=== PATIENT | female | born 1945 | race Caucasian/White ===

== ENCOUNTER 2024-05-31 13:21 | Outpatient (AMB) | payer MEDICARE, SELFPAY ==
[2024-05-31 13:38] VITALS: BP 127/79; PULSE 96; RESP 17; TEMP 37.3; O2SAT 90; BMI 25.4
--- NOTE | 2024-05-31 13:38 | PD.RESCLINIC ---
Vital Signs 05/31/24 13:38 Height 1.52 m Height Method Stated Weight 58.684 kg Weight Measurement Method Standing Scale BMI 25.4 BP 127/79 Blood Pressure Source Automatic Cuff Blood Pressure Location Left Upper Arm Position Sitting Respiration 17 Pulse 96 Pulse Source Monitor Temp 99.1 F Temp Source Oral Pulse Oximetry (%) 90 L Oxygen Delivery Method Nasal Cannula Allergies/Meds Allergies & Medications Allergies cefaclor Allergy (Verified 06/14/24 14:49) Redness of Skin prednisone Adverse Reaction (Intermediate, Verified 06/14/24 14:49) AGITATED Medication Reconciliation fluticasone fur. 100 mcg-umeclid 62.5 mcg-vilant 25 mcg inhalat.powder (Trelegy Ellipta) 1 inh inhalation QDAY 05/24/23 [History Confirmed 06/14/24] sennosides 8.6 mg tablet (Senna Laxative) 8.6 mg PO QDAY #2 tabs 05/28/23 [Rx Confirmed 06/14/24] clotrimazole 10 mg herbert 10 mg mucous membrane 5XD thrush #70 tabs 06/05/23 [Rx Confirmed 06/14/24] lorazepam 0.5 mg tablet 0.5 mg PO BID PRN anxiety #60 tabs 12/18/23 [Rx Confirmed 06/14/24] escitalopram oxalate 10 mg tablet 10 mg PO QDAY anxiety #90 tabs 12/25/23 [Rx Confirmed 06/14/24] azithromycin 250 mg tablet 250 mg PO UD #36 tabs 03/22/24 [Rx Confirmed 06/14/24] pramipexole 0.5 mg tablet 0.5 mg PO TID RLD #270 tabs 03/31/24 [Rx Confirmed 06/14/24] albuterol sulfate 90 mcg/actuation aerosol inhaler 2 inh inhalation Q4HR PRN Shortness Of Breath #8.5 grams 04/02/24 [Rx Confirmed 06/14/24] hyoscyamine sulfate 0.125 mg tablet 0.125 mg PO QID PRN pain #20 tabs 05/31/24 [Rx Confirmed 06/14/24] roflumilast 250 mcg tablet 250 mcg PO HS #90 tabs 07/01/24 [Rx] MD Intake Visit Data Collection New Patient or Established: Established Patient (seen at [facility] within 3 years) Seen by Clinical Staff ONLY (RN/MA): No Pain Present Currently: Yes Pain Location: Abdomen and Groin Pain scale:: 2 Pain Scale Used: Osullivan-Becker/Numerical PCP or OBGYN visit in last 3 months: Yes Do You Feel Safe at Home: Yes Authorities Contacted: N/A Smoking Status Smoking Status: Former smoker Immunization / Flu Flu Vaccine in the Last 12 Months: Yes Flu Vaccine Exclusion Criteria: Already Received Past Medical History Past Medical History NEUROLOGIC: Negative Neurological Disorders or Seizures CARDIAC: Positive Heart Murmur; Negative Cardiac Disorders or Congestive Heart Failure RESPIRATORY: Positive Chronic Obstructive Pulmonary Disease (COPD), Asthma, Bronchitis, Cough, Sputum Production and Wheezing GASTROINTESTINAL: Positive Gastrointestinal Disorders, Gall Bladder Disease, Gastrointestinal Bleed and Gastroesophageal Reflux Disease; Negative Hepatitis GENITOURINARY: Positive Kidney Stones (FOR THIS PROC (HAD PROC 2009)); Negative Genitourinary Disorders or Renal Disease REPRODUCTIVE: Positive Breast Cancer and Previous Pregnancies MUSCULOSKELETAL: Positive Arthritis, Osteoporosis and Degenerative Joint Disease ENT: Positive Cataracts, Ear Infection and Deafness ENDOCRINE: Negative Endocrine Disorders, Diabetes Mellitus Type 1 or Diabetes Mellitus Type 2 HEMATOLOGIC: Negative Blood Disorders or Sickle Cell Disease PSYCHO/SOCIAL: Positive Depression and Anxiety OTHER HISTORY: Positive Chemotherapy (2011), Radiation Therapy (January 2023), Cancer, Breast Cancer and Cervical Cancer; Negative Hospitalization, Down Syndrome, Developmental Delay, Shingles, Falls, Blood Transfusions, Blood Transfusion Reaction, Anesthesia Reactions, Organ Transplant, Hyperbaric Therapy, MRSA, VRSA, Vancomycin-Resistant Enterococci, Chicken Pox, Measles, Mumps or Clostridium Difficile Family History FAMILY HISTORY: Positive Family Respiratory Disorders (COPD), Family Cardiac Disorders, Family Gastrointestinal Problems (Trouble going to the bathroom. Trouble holding down food.), Family Cancer and Family Surgery; Negative Family Psychiatric Problems or Family Anesthesia Reaction Surgical History SURGICAL: Positive Lumpectomy and Hysterectomy; Negative Abdominal Surgery or Organ Transplant Social History SMOKING STATUS: Smoking status: Former smoker SECOND HAND EXPOSURE: second hand exposure: Yes ALCOHOL: Alcohol Intake: Never HOUSING: Housing: House LIVES WITH: Lives With: Alone Patient Portal Questionaires Social History Living Situation History Housing: House Tobacco History Smoking Status: Former smoker Second Hand Smoke Exposure: Yes Alcohol History Alcohol Intake: Never Domestic Abuse History Do You Feel Safe at Home: Yes Review of Systems Report any current symptoms Only answer those that you have currently: Past Medical History Past Medical History Have you ever been diagnosed with any of the following: Neurological Problems Seizures: No Cardiology Problems Heart Murmur: Yes Congestive Heart Failure: No Respiratory Problems Chronic Obstructive Pulmonary Disease (COPD): Yes Asthma: Yes Bronchitis: Yes Hx Cough: Yes Cough: Yes Wheezing: Yes Stomache/Intestinal Problems Hepatitis: No Gall Bladder Disease: Yes Gastrointestinal Bleed: Yes Gastroesophageal Reflux Disease: Yes Genital/Urinary Problems Renal Disease: No Kidney Stones: Yes (FOR THIS PROC (HAD PROC 2009)) Reproductive Problems Breast Cancer: Yes Previous Pregnancies: Yes Musculoskeletal Problems Arthritis: Yes Osteoporosis: Yes Degenerative Joint Disease: Yes Head,Eye,Nose,Throat Problems Cataracts: Yes Chronic Ear Infections: Yes Deafness: Yes Endocrine Problems Diabetes Mellitus Type 1: No Diabetes Mellitus Type 2: No Blood Problems Sickle Cell Disease: No Psychologic Problems Depression: Yes Anxiety: Yes Other Problems Hospitalization: No Down Syndrome: No Developmental Delay: No Shingles: No Falls: No Blood Transfusions: No Blood Transfusion Reaction: No Anesthesia Reactions: No Organ Transplant: No Chemotherapy: Yes (2011) Radiation Therapy: Yes (January 2023) Hyperbaric Therapy: No MRSA: No VRSA: No Vancomycin-Resistant Enterococci: No Chicken Pox: No Measles: No Mumps: No Clostridium Difficile: No Cancer: Yes Cervical Cancer: Yes Surgical History Hysterectomy: Yes History of Present Illness HPI Narrative Ms. Hollingsworth is a 77-year-old female with a PMHx of lung cancer s/p completion of radiation, restless leg syndrome, bladder and rectal prolapse, H/O multiple kidney stones and anxiety [facility] three month f/u visit. 05/31/2024 Today patient complains of right sided loin to groin pain, intermittent, 5/10, cramping in nature and associated with dysuria. Will order CBC, urinalysis and CT A/P noncontrast to assess for stones. Will also start patient on a 1 week course of Augmentin and hyoscyamine as needed for pain. Objective/Exam Narrative Physical exam: Constitutional Alert, oriented x 3 and comfortable. Elderly female on O2 via NC HEENT Vision grossly intact. Patent nares. Trachea midline Respiratory Chest normal on inspection and scattered polyphonic wheeze Cardiovascular S1 and S2 audible, RRR. No murmurs carotid bruit. No gross JVD. Abdominal Soft and non tender to palpation in all quadrants. BS + Genitourinary No bladder tenderness, no flank pain. Normal to palpation Musculoskeletal Extremities tone within normal limits. No LE edema. Neurological CN II - XII grossly intact. Extremity motor and sensation grossly intact. Skin Warm, dry and intact. No apparent lesions. Psychiatric Patient has good affect, is cooperative Assessment & Plan Diagnosis / Problem List (1) Dysuria: Status: Resolved Assessment & Plan: Today patient complains of right sided loin to groin pain, intermittent, 5/10, cramping in nature and associated with dysuria. Will order CBC, urinalysis and CT A/P noncontrast to assess for stones. Will also start patient on a 1 week course of Augmentin and hyoscyamine as needed for pain. Plan: Plan: ? Urinalysis, CBC ? Augmentin 1 tab p.o. twice daily for 1 week (2) Flank pain: Status: Resolved Assessment & Plan: Today patient complains of right sided loin to groin pain, intermittent, 5/10, cramping in nature and associated with dysuria. Will order CBC, urinalysis and CT A/P noncontrast to assess for stones. Will also start patient on a 1 week course of Augmentin and hyoscyamine as needed for pain. Plan: Plan: ? Hyoscyamine as needed for flank pain ? CT A/P NC ordered to assess for kidney stones (3) Osteoarthritis of right shoulder: Status: Acute Qualifiers: Osteoarthritis type: primary Qualified Code(s): M19.011 - Primary osteoarthritis, right shoulder Assessment & Plan: Patient has been experiencing worsening right shoulder joint pain for the last 7-8 months. No relief with OTC pain killers Had In office injection of 40 mg Kenalog and 1 cc lidocaine Plan: Patient does not complain of any pain this visit (4) Restless leg syndrome: Status: Chronic Assessment & Plan: Pt takes Pramipexole 0.5mg TID for her RLS, 0.5mg in AM and 1mg 1-2 hours prior to bedtime. Pt states her symptoms have mostly resolved with the increased dose. Plan: Continue with pramipexole at above doses Patient warned of side effects of increased dose including sleep and drop attacks and hypotension. (5) COPD (chronic obstructive pulmonary disease): Status: Chronic Qualifiers: COPD type: unspecified COPD Qualified Code(s): J44.9 - Chronic obstructive pulmonary disease, unspecified Assessment & Plan: Pt continues to use NC at all times. Pt has mild chronic wheezing mostly located in b/l bases. Pt uses her inhaler as needed. Pt is encouraged to see her photographic engineer annually. Plan: Continue to use O2 and wean as tolerated, with O2 sat goal between 88-92% Pt to use inhalers as needed. Pt encouraged to take deep breaths and to rinse after each use. Refilled Roflumilast as prescribed by her photographic engineer. Recommended patient to continue taking Azithromycin 3 times/week, and to continue to monitor for symptoms (6) Altered taste: Status: Acute Assessment & Plan: Pt continues to complain of dysgeusia. Pt has a hx of sinus issues s/p chemotherapy treatment. Pt may have some nasal polyps which could be affecting sense of taste. Patient's altered taste is somewhat resolved, as her food doesn't taste salty, but does feel like her taste sensation has decreased. Patient's B12 and Zinc levels were WNL. ENT specialist stated that patient's taste buds may not come back (d/t age), and no intervention can be done at this time. Plan: Continue to avoid foods that worsen her new baseline of lack of taste buds (7) Anxiety: Status: Acute Assessment & Plan: Pt states her anxiety has improved. Plan: Continue taking Lexapro dose 10mg and can use 0.5mg Ativan as needed Encouraged to use only as needed to avoid body dependence from medication Pt is also advised to engage in exercise and take deep breaths throughout the day, especially in periods of high anxiety (8) Insomnia: Status: Acute Qualifiers: Insomnia type: unspecified Qualified Code(s): G47.00 - Insomnia, unspecified Assessment & Plan: Pt states her insomnia has been better. Plan: Continue taking Lexapro dose 10mg and can use 0.5mg Ativan as needed (9) Pulmonary arterial hypertension: Status: Acute Assessment & Plan: Pt diagnosed wtih PAH, RSP 52mmHg, after having an Echo done in previous hospital visit. Plan: Continue to f/u with pt's symptoms May need to consider cardiology outpt if symptoms worsen (10) History of lung cancer: Status: Chronic Assessment & Plan: Pt completed radiation treatment in January of 2023. (11) Rectal prolapse: Status: Chronic Assessment & Plan: Pt continues to have issues with her BMs but controlled. Pt denies any abd pain. Plan: Continue taking Senna Laxative as needed to help with BMs. Consider referral to urology if symptoms worsen Plan Plan of care discussed with Attending Dr. Cassie George MD PGY 1 Orders: Orders Urinalysis, C/S if Indicated 05/31/24 R30.0 - Dysuria CBC 05/31/24 R30.0 - Dysuria CT abdomen pelvis wo con 05/31/24 R30.0 - Dysuria Additional Assessment Attending note: I, Marco Matthews MD, attest that I was physically present for the mackey portions of the service and evaluated the patient with the resident and I reviewed and discussed the case with the resident and agree with the resident's findings and plans of care as documented above. Acute visit. Complaining of flank/loin and groin pain with dysuria and cramping. Suspect UTI. Check UA, CBC. Flank CT to look for stones. Empiric Augmentin. Shoulder pain improved. Other chronic problems as noted.. Marco Matthews MD Advanced Care Planning Advance care planning discussed with:: patient Physician Billing Established Patient Established Patient: E/M Level 3-CPT [address] [facility] Level of Care Nursing/Assessment Patient Status: Established Patient Nursing Assessment/Reassessment: Medication Reconciliation, Update PMH in EMR and Vital Signs Coordination of Care: Complex Care and Chronic Disease 1-5, Education Complex Pt/Fam, Lab and Imaging orders and Staff clarify orders Established Patient Charge Established Patient Point Assignment: 100 Established Patient Point Charge: EP Level 3 (80-115)
== END 2024-05-31 14:22 | disposition home or self-care (01) ==
PROVIDERS: PCP Student in an Organized Health Care Education/Training Program; Referring Provider Student in an Organized Health Care Education/Training Program; Supervising Provider Internal Medicine
DX: R30.0 Dysuria (principal); R10.31 Right lower quadrant pain; M19.011 Primary osteoarthritis, right shoulder; G25.81 Restless legs syndrome; J44.9 Chronic obstructive pulmonary disease, unspecified; R43.2 Parageusia; F41.9 Anxiety disorder, unspecified
CPT/HCPCS: 36415; 85025; 99213; G0463

== ENCOUNTER → 2024-06-01 | Outpatient (CLI) | payer MEDICARE, SELFPAY ==
[2024-06-01 12:30] LABS: Collection Type, Urine Clean Catch
[2024-06-01 13:21] LABS: Bilirubin,Urine Negative (Negative); Blood,Urine 1+ (Negative); Clarity,Urine Clear (Clear/Hazy); Color,Urine Lt-Yellow (Lt Yel-Yel); Culture Indicated,Urine Not Indicated; Glucose, Urine Negative (Negative); Ketones,Urine Negative (Negative); Leukocyte Esterase,Urine Negative (Negative); Nitrite,Urine Negative (Negative); Protein,Urine Negative (Neg - Trace); RBC,Urine 13 /hpf (0-3); Specific Gravity,Urine 1.018 (1.001-1.035); Squamous Epithelial Cell,Urine 1 /hpf (0-5); Urobilinogen,Urine Negative mg/dL (0.0-1.0); WBC,Urine 2 /hpf (0-5)
== END | disposition home or self-care (01) ==
LOC: SLDO 12:24
DX: R30.0 Dysuria (principal)
CPT/HCPCS: 81001

== ENCOUNTER 2024-06-07 13:46 | Outpatient (AMB) | payer MEDICARE, SELFPAY ==
--- NOTE | 2024-06-07 13:48 | ACNOTE_ITS ---
Vital Signs 06/07/24 13:49 Height 1.52 m Height Method Stated Weight 58.287 kg Weight Measurement Method Standing Scale BMI 25.2 BP 111/76 Blood Pressure Source Automatic Cuff Blood Pressure Location Left Upper Arm Position Sitting Respiration 17 Pulse 101 H Pulse Source Monitor Temp 98.0 F Temp Source Oral Pulse Oximetry (%) 93 L Oxygen Delivery Method Room Air Allergies/Meds Allergies & Medications Allergies cefaclor Allergy (Verified 06/14/24 14:49) Redness of Skin prednisone Adverse Reaction (Intermediate, Verified 06/14/24 14:49) AGITATED Medication Reconciliation fluticasone fur. 100 mcg-umeclid 62.5 mcg-vilant 25 mcg inhalat.powder (Trelegy Ellipta) 1 inh inhalation QDAY 05/24/23 [History Confirmed 06/14/24] sennosides 8.6 mg tablet (Senna Laxative) 8.6 mg PO QDAY #2 tabs 05/28/23 [Rx Confirmed 06/14/24] clotrimazole 10 mg herbert 10 mg mucous membrane 5XD thrush #70 tabs 06/05/23 [Rx Confirmed 06/14/24] lorazepam 0.5 mg tablet 0.5 mg PO BID PRN anxiety #60 tabs 12/18/23 [Rx Confirmed 06/14/24] escitalopram oxalate 10 mg tablet 10 mg PO QDAY anxiety #90 tabs 12/25/23 [Rx Confirmed 06/14/24] azithromycin 250 mg tablet 250 mg PO UD #36 tabs 03/22/24 [Rx Confirmed 1 08/15/23] pramipexole 0.5 mg tablet 0.5 mg PO TID RLD #270 tabs 03/31/24 [Rx Confirmed 06/14/24] albuterol sulfate 90 mcg/actuation aerosol inhaler 2 inh inhalation Q4HR PRN Shortness Of Breath #8.5 grams 04/02/24 [Rx Confirmed 06/14/24] hyoscyamine sulfate 0.125 mg tablet 0.125 mg PO QID PRN pain #20 tabs 05/31/24 [Rx Confirmed 06/14/24] roflumilast 250 mcg tablet 250 mcg PO HS #90 tabs 07/01/24 [Rx] AL Intake Visit Data Collection New Patient or Established: Established Patient (seen at [facility] within 3 years) Seen by Clinical Staff ONLY (RN/MA): No Pain Present Currently: No Pain scale:: 0 Pain Scale Used: Osullivan-Becker/Numerical PCP or OBGYN visit in last 3 months: Yes Date of Last PCP or OBGYN visit: 06/07/24 Do You Feel Safe at Home: Yes Authorities Contacted: N/A Smoking Status Smoking Status: Former smoker Immunization / Flu Flu Vaccine in the Last 12 Months: Yes Flu Vaccine Exclusion Criteria: Already Received Past Medical History Past Medical History NEUROLOGIC: Negative Neurological Disorders or Seizures CARDIAC: Positive Heart Murmur; Negative Cardiac Disorders or Congestive Heart Failure RESPIRATORY: Positive Chronic Obstructive Pulmonary Disease (COPD), Asthma, Bronchitis, Cough, Sputum Production and Wheezing GASTROINTESTINAL: Positive Gastrointestinal Disorders, Gall Bladder Disease, Gastrointestinal Bleed and Gastroesophageal Reflux Disease; Negative Hepatitis GENITOURINARY: Positive Kidney Stones (FOR THIS PROC (HAD PROC 2009)); Negative Genitourinary Disorders or Renal Disease REPRODUCTIVE: Positive Breast Cancer and Previous Pregnancies MUSCULOSKELETAL: Positive Arthritis, Osteoporosis and Degenerative Joint Disease ENT: Positive Cataracts, Ear Infection and Deafness ENDOCRINE: Negative Endocrine Disorders, Diabetes Mellitus Type 1 or Diabetes Mellitus Type 2 HEMATOLOGIC: Negative Blood Disorders or Sickle Cell Disease PSYCHO/SOCIAL: Positive Depression and Anxiety OTHER HISTORY: Positive Chemotherapy (2011), Radiation Therapy (January 2023), Cancer, Breast Cancer and Cervical Cancer; Negative Hospitalization, Down Syndrome, Developmental Delay, Shingles, Falls, Blood Transfusions, Blood Transfusion Reaction, Anesthesia Reactions, Organ Transplant, Hyperbaric Therapy, MRSA, VRSA, Vancomycin-Resistant Enterococci, Chicken Pox, Measles, Mumps or Clostridium Difficile Family History FAMILY HISTORY: Positive Family Respiratory Disorders (COPD), Family Cardiac Disorders, Family Gastrointestinal Problems (Trouble going to the bathroom. Trouble holding down food.), Family Cancer and Family Surgery; Negative Family Psychiatric Problems or Family Anesthesia Reaction Surgical History SURGICAL: Positive Lumpectomy and Hysterectomy; Negative Abdominal Surgery or Organ Transplant Social History SMOKING STATUS: Smoking status: Former smoker SECOND HAND EXPOSURE: second hand exposure: Yes ALCOHOL: Alcohol Intake: Never HOUSING: Housing: House LIVES WITH: Lives With: Alone Patient Portal Questionaires Social History Living Situation History Housing: House Tobacco History Smoking Status: Former smoker Second Hand Smoke Exposure: Yes Alcohol History Alcohol Intake: Never Domestic Abuse History Do You Feel Safe at Home: Yes Review of Systems Report any current symptoms Only answer those that you have currently: Past Medical History Past Medical History Have you ever been diagnosed with any of the following: Neurological Problems Seizures: No Cardiology Problems Heart Murmur: Yes Congestive Heart Failure: No Respiratory Problems Chronic Obstructive Pulmonary Disease (COPD): Yes Asthma: Yes Bronchitis: Yes Hx Cough: Yes Cough: Yes Wheezing: Yes Stomache/Intestinal Problems Hepatitis: No Gall Bladder Disease: Yes Gastrointestinal Bleed: Yes Gastroesophageal Reflux Disease: Yes Genital/Urinary Problems Renal Disease: No Kidney Stones: Yes (FOR THIS PROC (HAD PROC 2009)) Reproductive Problems Breast Cancer: Yes Previous Pregnancies: Yes Musculoskeletal Problems Arthritis: Yes Osteoporosis: Yes Degenerative Joint Disease: Yes Head,Eye,Nose,Throat Problems Cataracts: Yes Chronic Ear Infections: Yes Deafness: Yes Endocrine Problems Diabetes Mellitus Type 1: No Diabetes Mellitus Type 2: No Blood Problems Sickle Cell Disease: No Psychologic Problems Depression: Yes Anxiety: Yes Other Problems Hospitalization: No Down Syndrome: No Developmental Delay: No Shingles: No Falls: No Blood Transfusions: No Blood Transfusion Reaction: No Anesthesia Reactions: No Organ Transplant: No Chemotherapy: Yes (2011) Radiation Therapy: Yes (January 2023) Hyperbaric Therapy: No MRSA: No VRSA: No Vancomycin-Resistant Enterococci: No Chicken Pox: No Measles: No Mumps: No Clostridium Difficile: No Cancer: Yes Cervical Cancer: Yes Surgical History Hysterectomy: Yes History of Present Illness HPI Narrative Ms. Hollingsworth is a 77-year-old female with a PMHx of lung cancer s/p completion of radiation, restless leg syndrome, bladder and rectal prolapse, H/O multiple kidney stones and anxiety [facility] three month f/u visit. 05/31/2024 Today patient complains of right sided loin to groin pain, intermittent, 5/10, cramping in nature and associated with dysuria. Will order CBC, urinalysis and CT A/P noncontrast to assess for stones. Will also start patient on a 1 week course of Augmentin and hyoscyamine as needed for pain. 06/07/2024 Patient CBC chest showed chronic normocytic anemia with Hb 11.2. WBC normal at 7.5 Urinalysis was just significant for 1+ blood which appears to be a chronic problem, possibly microscopic hematuria due to nephrolithiasis. Patient did not take a course of antibiotics and also did not take any pain medication as she said the pain has since subsided. She also did not make an appointment for her CT A/P NC. Her CBC and urinalysis were not significant for any signs of infection and also her pain has subsided so no need for antibiotics or pain medication at this time. I advised patient to make appointment for CT A/P noncontrast and to follow-up within 1 month. Objective/Exam Narrative Physical exam: Constitutional Alert, oriented x 3 and comfortable. Elderly female on O2 via NC HEENT Vision grossly intact. Patent nares. Trachea midline Respiratory Chest normal on inspection and scattered polyphonic wheeze Cardiovascular S1 and S2 audible, RRR. No murmurs carotid bruit. No gross JVD. Abdominal Soft and non tender to palpation in all quadrants. BS + Genitourinary No bladder tenderness, no flank pain. Normal to palpation Musculoskeletal Extremities tone within normal limits. No LE edema. Neurological CN II - XII grossly intact. Extremity motor and sensation grossly intact. Skin Warm, dry and intact. No apparent lesions. Psychiatric Patient has good affect, is cooperative Assessment & Plan Diagnosis / Problem List (1) Dysuria: Status: Resolved Assessment & Plan: Patient CBC chest showed chronic normocytic anemia with Hb 11.2. WBC normal at 7.5 Urinalysis was just significant for 1+ blood which appears to be a chronic problem, possibly microscopic hematuria due to nephrolithiasis. Patient did not take a course of antibiotics and also did not take any pain medication as she said the pain has since subsided and her dysuria resolved She also did not make an appointment for her CT A/P NC. Her CBC and urinalysis were not significant for any signs of infection and also her pain has subsided so no need for antibiotics or pain medication at this time. I advised patient to make appointment for CT A/P noncontrast and to follow-up within 1 month. (2) Flank pain: Status: Resolved Assessment & Plan: Patient CBC chest showed chronic normocytic anemia with Hb 11.2. WBC normal at 7.5 Urinalysis was just significant for 1+ blood which appears to be a chronic problem, possibly microscopic hematuria due to nephrolithiasis. Patient did not take a course of antibiotics and also did not take any pain medication as she said the pain has since subsided. She also did not make an appointment for her CT A/P NC. Her CBC and urinalysis were not significant for any signs of infection and also her pain has subsided so no need for antibiotics or pain medication at this time. I advised patient to make appointment for CT A/P noncontrast and to follow-up within 1 month. Plan: Plan: ? Patient advised to make appointment for CT A/P NC to assess for kidney stones (3) Osteoarthritis of right shoulder: Status: Acute Qualifiers: Osteoarthritis type: primary Qualified Code(s): M19.011 - Primary osteoarthritis, right shoulder Assessment & Plan: Patient has been experiencing worsening right shoulder joint pain for the last 7-8 months. No relief with OTC pain killers Had In office injection of 40 mg Kenalog and 1 cc lidocaine Plan: Patient does not complain of any pain this visit (4) Restless leg syndrome: Status: Chronic Assessment & Plan: Pt takes Pramipexole 0.5mg TID for her RLS, 0.5mg in AM and 1mg 1-2 hours prior to bedtime. Pt states her symptoms have mostly resolved with the increased dose. Plan: Continue with pramipexole at above doses Patient warned of side effects of increased dose including sleep and drop attacks and hypotension. (5) COPD (chronic obstructive pulmonary disease): Status: Chronic Qualifiers: COPD type: unspecified COPD Qualified Code(s): J44.9 - Chronic ob structive pulmonary disease, unspecified Assessment & Plan: Pt continues to use NC at all times. Pt has mild chronic wheezing mostly located in b/l bases. Pt uses her inhaler as needed. Pt is encouraged to see her digital experience manager annually. Plan: Continue to use O2 and wean as tolerated, with O2 sat goal between 88-92% Pt to use inhalers as needed. Pt encouraged to take deep breaths and to rinse after each use. Refilled Roflumilast as prescribed by her digital experience manager. Recommended patient to continue taking Azithromycin 3 times/week, and to continue to monitor for symptoms (6) Altered taste: Status: Acute Assessment & Plan: Pt continues to complain of dysgeusia. Pt has a hx of sinus issues s/p chemotherapy treatment. Pt may have some nasal polyps which could be affecting sense of taste. Patient's altered taste is somewhat resolved, as her food doesn't taste salty, but does feel like her taste sensation has decreased. Patient's B12 and Zinc levels were WNL. ENT specialist stated that patient's taste buds may not come back (d/t age), and no intervention can be done at this time. Plan: Continue to avoid foods that worsen her new baseline of lack of taste buds (7) Anxiety: Status: Acute Assessment & Plan: Pt states her anxiety has improved. Plan: Continue taking Lexapro dose 10mg and can use 0.5mg Ativan as needed Encouraged to use only as needed to avoid body dependence from medication Pt is also advised to engage in exercise and take deep breaths throughout the day, especially in periods of high anxiety (8) Insomnia: Status: Acute Qualifiers: Insomnia type: unspecified Qualified Code(s): G47.00 - Insomnia, unspecified Assessment & Plan: Pt states her insomnia has been better. Plan: Continue taking Lexapro dose 10mg and can use 0.5mg Ativan as needed (9) Pulmonary arterial hypertension: Status: Acute Assessment & Plan: Pt diagnosed wtih PAH, RSP 52mmHg, after having an Echo done in previous hospital visit. Plan: Continue to f/u with pt's symptoms May need to consider cardiology outpt if symptoms worsen (10) History of lung cancer: Status: Chronic Assessment & Plan: Pt completed radiation treatment in January of 2023. (11) Rectal prolapse: Status: Chronic Assessment & Plan: Pt continues to have issues with her BMs but controlled. Pt denies any abd pain. Plan: Continue taking Senna Laxative as needed to help with BMs. Consider referral to urology if symptoms worsen Plan Plan of care discussed with Attending Dr. Cassie George MD PGY 1 Additional Assessment Attending note: I, Marco Matthews MD, attest that I was physically present for the mackey portions of the service and evaluated the patient with the resident and I reviewed and discussed the case with the resident and agree with the resident's findings and plans of care as documented above. Follow-up visit. Labs reviewed. Normocytic anemia. White blood cell count normal. Does have persistent microscopic hematuria, possibly secondary to nephrolithiasis. CT scan ordered. Patient did not take antibiotics. Pain has subsided. Chronic issues as noted. Marco Matthews MD Advanced Care Planning Advance care planning discussed with:: patient Physician Billing Established Patient Established Patient: E/M Level 3-CPT [id number] Office Procedures [facility] Level of Care Nursing/Assessment Patient Status: Established Patient Nursing Assessment/Reassessment: Medication Reconciliation, Update PMH in EMR and Vital Signs Coordination of Care: Complex Care and Chronic Disease 1-5, Education Complex Pt/Fam, Results/Orders obtained and Staff clarify orders Established Patient Charge Established Patient Point Assignment: 90 Established Patient Point Charge: Level 3 (80-115)
[2024-06-07 13:49] VITALS: BP 111/76; PULSE 101; RESP 17; TEMP 36.7; O2SAT 93; BMI 25.2
== END 2024-06-07 14:20 | disposition home or self-care (01) ==
LOC: HODAHC 13:46
PROVIDERS: PCP Student in an Organized Health Care Education/Training Program; Referring Provider Student in an Organized Health Care Education/Training Program; Supervising Provider Internal Medicine
DX: D64.9 Anemia, unspecified (principal); G25.81 Restless legs syndrome; J44.9 Chronic obstructive pulmonary disease, unspecified; M19.011 Primary osteoarthritis, right shoulder; R43.9 Unspecified disturbances of smell and taste; G47.00 Insomnia, unspecified; Z85.118 Personal history of other malignant neoplasm of bronchus and lung; K62.3 Rectal prolapse
CPT/HCPCS: 99213; G0463

== ENCOUNTER 2024-06-14 14:44 | Outpatient (AMB) | payer MEDICARE, SELFPAY ==
--- NOTE | 2024-06-14 14:49 | ACNOTE_ITS ---
Allergies/Meds Allergies & Medications Allergies cefaclor Allergy (Verified 06/14/24 14:49) Redness of Skin prednisone Adverse Reaction (Intermediate, Verified 06/14/24 14:49) AGITATED Medication Reconciliation fluticasone fur. 100 mcg-umeclid 62.5 mcg-vilant 25 mcg inhalat.powder (Trelegy Ellipta) 1 inh inhalation QDAY 05/24/23 [History Confirmed 06/14/24] sennosides 8.6 mg tablet (Senna Laxative) 8.6 mg PO QDAY #2 tabs 05/28/23 [Rx Confirmed 06/14/24] clotrimazole 10 mg herbert 10 mg mucous membrane 5XD thrush #70 tabs 06/05/23 [Rx Confirmed 06/14/24] lorazepam 0.5 mg tablet 0.5 mg PO BID PRN anxiety #60 tabs 12/18/23 [Rx Confirmed 06/14/24] escitalopram oxalate 10 mg tablet 10 mg PO QDAY anxiety #90 tabs 12/25/23 [Rx Confirmed 06/14/24] azithromycin 250 mg tablet 250 mg PO UD #36 tabs 03/22/24 [Rx Confirmed 06/14/24] pramipexole 0.5 mg tablet 0.5 mg PO TID RLD #270 tabs 03/31/24 [Rx Confirmed 06/14/24] albuterol sulfate 90 mcg/actuation aerosol inhaler 2 inh inhalation Q4HR PRN Shortness Of Breath #8.5 grams 04/02/24 [Rx Confirmed 06/14/24] hyoscyamine sulfate 0.125 mg tablet 0.125 mg PO QID PRN pain #20 tabs 05/31/24 [Rx Confirmed 06/14/24] roflumilast 250 mcg tablet 250 mcg PO HS #90 tabs 07/01/24 [Rx] MA Intake Visit Data Collection New Patient or Established: Established Patient (seen at [facility] within 3 years) Seen by Clinical Staff ONLY (RN/MA): No Pain Present Currently: No Pain scale:: 0 Pain Scale Used: Osullivan-Becker/Numerical PCP or OBGYN visit in last 3 months: Yes Do You Feel Safe at Home: Yes Authorities Contacted: N/A Smoking Status Smoking Status: Former smoker For Televisit only Telemed Video/Phone Visit: Yes Verbal consent obtained for Telemed visit?: Yes Verbal Consent witness name: DAISHA Telemed Video/Phone visit w/Clinical Staff: 21-30 min Immunization / Flu Flu Vaccine in the Last 12 Months: No Flu Vaccine Exclusion Criteria: No Exclusion Criteria Past Medical History Past Medical History NEUROLOGIC: Negative Neurological Disorders or Seizures CARDIAC: Positive Heart Murmur; Negative Cardiac Disorders or Congestive Heart Failure RESPIRATORY: Positive Chronic Obstructive Pulmonary Disease (COPD), Asthma, Bronchitis, Cough, Sputum Production and Wheezing GASTROINTESTINAL: Positive Gastrointestinal Disorders, Gall Bladder Disease, Gastrointestinal Bleed and Gastroesophageal Reflux Disease; Negative Hepatitis GENITOURINARY: Positive Kidney Stones (FOR THIS PROC (HAD PROC 2009)); Negative Genitourinary Disorders or Renal Disease REPRODUCTIVE: Positive Breast Cancer and Previous Pregnancies MUSCULOSKELETAL: Positive Arthritis, Osteoporosis and Degenerative Joint Disease ENT: Positive Cataracts, Ear Infection and Deafness ENDOCRINE: Negative Endocrine Disorders, Diabetes Mellitus Type 1 or Diabetes Mellitus Type 2 HEMATOLOGIC: Negative Blood Disorders or Sickle Cell Disease PSYCHO/SOCIAL: Positive Depression and Anxiety OTHER HISTORY: Positive Chemotherapy (2011), Radiation Therapy (January 2023), Cancer, Breast Cancer and Cervical Cancer; Negative Hospitalization, Down Syndrome, Developmental Delay, Shingles, Falls, Blood Transfusions, Blood Transfusion Reaction, Anesthesia Reactions, Organ Transplant, Hyperbaric Therapy, MRSA, VRSA, Vancomycin-Resistant Enterococci, Chicken Pox, Measles, Mumps or Clostridium Difficile Family History FAMILY HISTORY: Positive Family Respiratory Disorders (COPD), Family Cardiac Disorders, Family Gastrointestinal Problems (Trouble going to the bathroom. Trouble holding down food.), Family Cancer and Family Surgery; Negative Family Psychiatric Problems or Family Anesthesia Reaction Surgical History SURGICAL: Positive Lumpectomy and Hysterectomy; Negative Abdominal Surgery or Organ Transplant Social History SMOKING STATUS: Smoking status: Former smoker SECOND HAND EXPOSURE: second hand exposure: Yes ALCOHOL: Alcohol Intake: Never HOUSING: Housing: House LIVES WITH: Lives With: Alone Patient Portal Questionaires Social History Living Situation History Housing: House Tobacco History Smoking Status: Former smoker Second Hand Smoke Exposure: Yes Alcohol History Alcohol Intake: Never Domestic Abuse History Do You Feel Safe at Home: Yes Review of Systems Report any current symptoms Only answer those that you have currently: Past Medical History Past Medical History Have you ever been diagnosed with any of the following: Neurological Problems Seizures: No Cardiology Problems Heart Murmur: Yes Congestive Heart Failure: No Respiratory Problems Chronic Obstructive Pulmonary Disease (COPD): Yes Asthma: Yes Bronchitis: Yes Hx Cough: Yes Cough: Yes Wheezing: Yes Stomache/Intestinal Problems Hepatitis: No Gall Bladder Disease: Yes Gastrointestinal Bleed: Yes Gastroesophageal Reflux Disease: Yes Genital/Urinary Problems Renal Disease: No Kidney Stones: Yes (FOR THIS PROC (HAD PROC 2009)) Reproductive Problems Breast Cancer: Yes Previous Pregnancies: Yes Musculoskeletal Problems Arthritis: Yes Osteoporosis: Yes Degenerative Joint Disease: Yes Head,Eye,Nose,Throat Problems Cataracts: Yes Chronic Ear Infections: Yes Deafness: Yes Endocrine Problems Diabetes Mellitus Type 1: No Diabetes Mellitus Type 2: No Blood Problems Sickle Cell Disease: No Psychologic Problems Depression: Yes Anxiety: Yes Other Problems Hospitalization: No Down Syndrome: No Developmental Delay: No Shingles: No Falls: No Blood Transfusions: No Blood Transfusion Reaction: No Anesthesia Reactions: No Organ Transplant: No Chemotherapy: Yes (2011) Radiation Therapy: Yes (January 2023) Hyperbaric Therapy: No MRSA: No VRSA: No Vancomycin-Resistant Enterococci: No Chicken Pox: No Measles: No Mumps: No Clostridium Difficile: No Cancer: Yes Cervical Cancer: Yes Surgical History Hysterectomy: Yes History of Present Illness HPI Narrative Ms. Hollingsworth is a 77-year-old female with a PMHx of lung cancer s/p completion of radiation, restless leg syndrome, bladder and rectal prolapse, H/O multiple kidney stones and anxiety [facility] three month f/u visit. 05/31/2024 Today patient complains of right sided loin to groin pain, intermittent, 5/10, cramping in nature and associated with dysuria. Will order CBC, urinalysis and CT A/P noncontrast to assess for stones. Will also start patient on a 1 week course of Augmentin and hyoscyamine as needed for pain. 06/07/2024 Patient CBC chest showed chronic normocytic anemia with Hb 11.2. WBC normal at 7.5 Urinalysis was just significant for 1+ blood which appears to be a chronic problem, possibly microscopic hematuria due to nephrolithiasis. Patient did not take a course of antibiotics and also did not take any pain medication as she said the pain has since subsided. She also did not make an appointment for her CT A/P NC. Her CBC and urinalysis were not significant for any signs of infection and also her pain has subsided so no need for antibiotics or pain medication at this time. I advised patient to make appointment for CT A/P noncontrast and to follow-up within 1 month. Follow-up visit Tele-visit 06/14/2024 Televisit was conducted to inform patient of her CT abdomen/pelvis results CT abdomen/pelvis completed on 06/11/2024 findings include: 19 mm fat-containing left adrenal adenoma, possible right renal cyst 30 mm, bilateral 1 to 2 mm renal calculi, severe scarring right kidney No hydronephrosis or uretral calculi Discussed results of CT scan with patient. Advised no need for Urology referral at this time. Will consider dexamethasone suppression test next visit to rule out functional adrenal adenoma. Assessment & Plan Diagnosis / Problem List (1) Flank pain: Status: Resolved Assessment & Plan: CT abdomen/pelvis completed on 06/11/2024 findings include: 19 mm fat-containing left adrenal adenoma, possible right renal cyst 30 mm, bilateral 1 to 2 mm renal calculi, severe scarring right kidney No hydronephrosis or uretral calculi Discussed results of CT scan with patient. Advised no need for Urology referral at this time. Patient also stated that her flank pain and dysuria have resolved Will consider dexamethasone suppression test next visit to rule out functional adrenal adenoma. Plan: Plan: - No need for Urology referral at this time (2) Adenoma of left adrenal gland: Status: Acute Assessment & Plan: CT abdomen/pelvis completed on 06/11/2024 findings include: 19 mm fat-containing left adrenal adenoma, possible right renal cyst 30 mm, bilateral 1 to 2 mm renal calculi, severe scarring right kidney No hydronephrosis or uretral calculi Currently patient denies all symptoms of aldosterone/corticosteroid excess. Denies hypertension, hyperpigmentation, headaches Will consider dexamethasone suppression test next visit to rule out functional adrenal adenoma. Plan: Plan: - To discuss with patient next visit about dexamethasone suppression test Plan Plan of care discussed with Attending Dr. Cassie George MD PGY 1 Additional Assessment Attending note: I, Marco Matthews MD, attest that I was physically present for the mackey portions of the service completed via telehealth, and I reviewed and discussed the case with the resident and agree with the resident's plans of care as documented above. Review of CT abdomen/pelvis. No evidence of obstructive nephrolithiasis though there are bilateral 1 to 2 mm renal calculi.. Possible 3 cm right renal cyst. There is severe scarring of the right kidney. No hydronephrosis. Incidental finding of left adrenal adenoma 19 mm that is fat- containing. Flank pain and dysuria improved with antibiotics. Marco Matthews MD Advanced Care Planning Advance care planning discussed with:: patient Physician Billing Established Patient Established Patient: E/M Level 2-CPT 85152 Office Procedures [facility] Level of Care Nursing/Assessment Patient Status: Established Patient Nursing Assessment/Reassessment: Medication Reconciliation and Update PMH in EMR Coordination of Care: Complex Care and Chronic Disease 1-5, Education Complex Pt/Fam and Staff clarify orders Established Patient Charge Established Patient Point Assignment: 70 Telehealth Telemed Phone/Video with patient at home & ,[place],COMMODITY SUPERVISOR: Yes
== END 2024-06-14 15:38 | disposition home or self-care (01) ==
LOC: HODAHC 14:44
PROVIDERS: PCP Student in an Organized Health Care Education/Training Program; Referring Provider Student in an Organized Health Care Education/Training Program; Supervising Provider Internal Medicine
DX: Z71.2 Person consulting for explanation of examination or test findings (principal); D35.02 Benign neoplasm of left adrenal gland; N20.0 Calculus of kidney; N28.89 Other specified disorders of kidney and ureter
CPT/HCPCS: 99212; G0463

== ENCOUNTER 2024-09-06 13:26 | Outpatient (AMB) | payer MEDICARE, SELFPAY ==
[2024-09-06 13:34] VITALS: BP 130/68; PULSE 95; RESP 18; TEMP 35.4; O2SAT 93; BMI 25.6
--- NOTE | 2024-09-06 13:34 | ACNOTE_ITS ---
Vital Signs 09/06/24 13:34 Height 1.52 m Height Method Stated Weight 59.194 kg Weight Measurement Method Standing Scale BMI 25.6 BP 130/68 Blood Pressure Source Automatic Cuff Blood Pressure Location Left Upper Arm Position Sitting Respiration 18 Pulse 95 Pulse Source Monitor Temp 95.7 F L Temp Source Oral Pulse Oximetry (%) 93 L Oxygen Delivery Method High Flow Nasal Cannula Oxygen Flow Rate 2 Allergies/Meds Allergies & Medications Allergies cefaclor Allergy (Verified 09/06/24 13:35) Redness of Skin prednisone Adverse Reaction (Intermediate, Verified 09/06/24 13:35) AGITATED Medication Reconciliation sennosides 8.6 mg tablet (Senna Laxative) 8.6 mg PO QDAY #2 tabs 05/28/23 [Rx Confirmed 09/06/24] clotrimazole 10 mg herbert 10 mg mucous membrane 5XD thrush #70 tabs 06/05/23 [Rx Confirmed 09/06/24] escitalopram oxalate 10 mg tablet 10 mg PO QDAY anxiety #90 tabs 12/25/23 [Rx Confirmed 09/06/24] azithromycin 250 mg tablet 250 mg PO UD #36 tabs 03/22/24 [Rx Confirmed 09/06/24] pramipexole 0.5 mg tablet 0.5 mg PO TID RLD #270 tabs 03/31/24 [Rx Confirmed 09/06/24] albuterol sulfate 90 mcg/actuation aerosol inhaler 2 inh inhalation Q4HR PRN Shortness Of Breath #8.5 grams 04/02/24 [Rx Confirmed 09/06/24] hyoscyamine sulfate 0.125 mg tablet 0.125 mg PO QID PRN pain #20 tabs 05/31/24 [Rx Confirmed 09/06/24] roflumilast 250 mcg tablet 250 mcg PO HS #90 tabs 07/01/24 [Rx Confirmed 09/06/24] fluticasone fur. 100 mcg-umeclid 62.5 mcg-vilant 25 mcg inhalat.powder (Trelegy Ellipta) 1 inh inhalation QDAY 1 month #60 ea 09/06/24 [Rx] lorazepam 0.5 mg tablet 0.5 mg PO BID PRN anxiety #60 tabs 09/06/24 [Rx] MA Intake Visit Data Collection New Patient or Established: Established Patient (seen at [facility] within 3 years) Seen by Clinical Staff ONLY (RN/MA): No Pain Present Currently: No Pain scale:: 0 Pain Scale Used: Osullivan-Becker/Numerical Vapor Coater Required: No PCP or OBGYN visit in last 3 months: Yes Date of Last PCP or OBGYN visit: 06/07/24 Hx Now: No Do You Feel Safe at Home: Yes Authorities Contacted: N/A Smoking Status Smoking Status: Former smoker Immunization / Flu Flu Vaccine in the Last 12 Months: Yes Flu Vaccine Exclusion Criteria: No Exclusion Criteria Past Medical History Past Medical History NEUROLOGIC: Negative Neurological Disorders or Seizures CARDIAC: Positive Heart Murmur; Negative Cardiac Disorders or Congestive Heart Failure RESPIRATORY: Positive Chronic Obstructive Pulmonary Disease (COPD), Asthma, Bronchitis, Cough, Sputum Production and Wheezing GASTROINTESTINAL: Positive Gastrointestinal Disorders, Gall Bladder Disease, Gastrointestinal Bleed and Gastroesophageal Reflux Disease; Negative Hepatitis GENITOURINARY: Positive Kidney Stones (FOR THIS PROC (HAD PROC 2009)); Negative Genitourinary Disorders or Renal Disease REPRODUCTIVE: Positive Breast Cancer and Previous Pregnancies MUSCULOSKELETAL: Positive Arthritis, Osteoporosis and Degenerative Joint Disease ENT: Positive Cataracts, Ear Infection and Deafness ENDOCRINE: Negative Endocrine Disorders, Diabetes Mellitus Type 1 or Diabetes Mellitus Type 2 HEMATOLOGIC: Negative Blood Disorders or Sickle Cell Disease PSYCHO/SOCIAL: Positive Depression and Anxiety OTHER HISTORY: Positive Chemotherapy (2011), Radiation Therapy (January 2023), Cancer, Breast Cancer and Cervical Cancer; Negative Hospitalization, Down Syndrome, Developmental Delay, Shingles, Falls, Blood Transfusions, Blood Transfusion Reaction, Anesthesia Reactions, Organ Transplant, Hyperbaric Therapy, MRSA, VRSA, Vancomycin-Resistant Enterococci, Chicken Pox, Measles, Mumps or Clostridium Difficile Family History FAMILY HISTORY: Positive Family Respiratory Disorders (COPD), Family Cardiac Disorders, Family Gastrointestinal Problems (Trouble going to the bathroom. Trouble holding down food.), Family Cancer and Family Surgery; Negative Family Psychiatric Problems or Family Anesthesia Reaction Surgical History SURGICAL: Positive Lumpectomy and Hysterectomy; Negative Abdominal Surgery or Organ Transplant Social History SMOKING STATUS: Smoking status: Former smoker SECOND HAND EXPOSURE: second hand exposure: Yes ALCOHOL: Alcohol Intake: Never HOUSING: Housing: House LIVES WITH: Lives With: Alone Patient Portal Questionaires PHQ-9 PHQ-2 Over the last 2 weeks, how often have you been bothered by any of the following problems? 1. Little interest or pleasure in doing things: not at all 2. Feeling down, depressed, or hopeless: not at all Total score: 0 PHQ-9 3. Trouble falling or staying asleep, or sleeping too much: Not at all 4. Feeling tired or having little energy: Not at all 5. Poor appetite or overeating: Not at all 6. Feeling bad about yourself - or that you are a failure or have let yourself or your family down: Not at all 7. Trouble concentrating on things, such as reading the newspaper or watching television: Not at all 8. Moving or speaking so slowly that other people could have noticed? - Or the opposite - being so fidgety or restless that you have been moving around a lot more than usual: not at all 9. Thoughts that you would be better off or of hurting yourself in some way: Not at all Total score: 0 Source: Developed by Drs. Mati Black, Yue Jones, Rigo Oliveira and colleagues, with an educational aggie from [employer]. Depression screen completed yes Social History Living Situation History Housing: House Tobacco History Smoking Status: Former smoker Second Hand Smoke Exposure: Yes Alcohol History Alcohol Intake: Never Domestic Abuse History Do You Feel Safe at Home: Yes Review of Systems Report any current symptoms Only answer those that you have currently: Past Medical History Past Medical History Have you ever been diagnosed with any of the following: Neurological Problems Seizures: No Cardiology Problems Heart Murmur: Yes Congestive Heart Failure: No Respiratory Problems Chronic Obstructive Pulmonary Disease (COPD): Yes Asthma: Yes Bronchitis: Yes Hx Cough: Yes Cough: Yes Wheezing: Yes Stomache/Intestinal Problems Hepatitis: No Gall Bladder Disease: Yes Gastrointestinal Bleed: Yes Gastroesophageal Reflux Disease: Yes Genital/Urinary Problems Renal Disease: No Kidney Stones: Yes (FOR THIS PROC (HAD PROC 2009)) Reproductive Problems Breast Cancer: Yes Previous Pregnancies: Yes Musculoskeletal Problems Arthritis: Yes Osteoporosis: Yes Degenerative Joint Disease: Yes Head,Eye,Nose,Throat Problems Cataracts: Yes Chronic Ear Infections: Yes Deafness: Yes Endocrine Problems Diabetes Mellitus Type 1: No Diabetes Mellitus Type 2: No Blood Problems Sickle Cell Disease: No Psychologic Problems Depression: Yes Anxiety: Yes Other Problems Hospitalization: No Down Syndrome: No Developmental Delay: No Shingles: No Falls: No Blood Transfusions: No Blood Transfusion Reaction: No Anesthesia Reactions: No Organ Transplant: No Chemotherapy: Yes (2011) Radiation Therapy: Yes (January 2023) Hyperbaric Therapy: No MRSA: No VRSA: No Vancomycin-Resistant Enterococci: No Chicken Pox: No Measles: No Mumps: No Clostridium Difficile: No Cancer: Yes Cervical Cancer: Yes Surgical History Hysterectomy: Yes History of Present Illness HPI Narrative Ms. Hollingsworth is a 77-year-old female with a PMHx of lung cancer s/p completion of radiation in summer, restless leg syndrome, bladder and rectal prolapse, H/O multiple kidney stones and anxiety [facility] one month f/u visit. Patient states she has been having oral thrush, hoarseness, and sinus issues for the last month. Patient was concerned that her chronic azithromycin and Trelegy inhaler could be the cause of her oral thrush. She also has been having muscle cramps at night that lasted 3 weeks ago. Will decrease her Azithromycin to twice a week and decrease her Trelegy dose to 100mcg. Patient brought in a form to be faxed to [employer] for coverage. Recommended patient to visit in one month. Review of Systems Review of Systems Systems Reviewed: All systems reviewed, normal except as documented Objective/Exam Narrative Physical exam: Constitutional: AOx3, able to speak full sentences with no acute distress. Patient seen using portable O2 with 2L NC, satting 92%. HEENT: NC/AT, PERRLA, oral mucosa moist with mild thrush noticed on her end of her lips CVS: RRR, S1-S2 present, no murmurs RESP: Pt has mild wheezing in posterior lung bases b/l. No crackles appreciated. Equal air movement throughout. 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 Sensation grossly intact. Assessment & Plan Diagnosis / Problem List (1) COPD (chronic obstructive pulmonary disease): Status: Chronic Qualifiers: COPD type: unspecified COPD Qualified Code(s): J44.9 - Chronic obstructive pulmonary disease, unspecified Assessment & Plan: Pt continues to use NC at all times. Pt has mild chronic wheezing mostly located in b/l bases. Pt uses her albuterol inhaler and Trelegy inahler daily. Plan: -Continue to use O2 and wean as tolerated, with O2 sat goal between 88-92% -Pt to use inhalers as needed. -Pt encouraged to take deep breaths and to rinse after each use. -Continue with Roflumilast -Decreased patient's Azithromycin dose to 2 times/week and Trelegy dose from 200mcg to 100mcg. -[employer] form for Trelegy sent to their fax center for coverage -Patient is using a mouth wash which is effective in removing the thrush noticed in her oral cavity (2) Restless leg syndrome: Status: Chronic Assessment & Plan: Pt takes Pramipexole 0.5mg TID for her RLS, 0.5mg in AM and 1mg 1-2 hours prior to bedtime. Pt states her symptoms have mostly resolved with the increased dose, but noticed new muscle cramps in the last 3 weeks Plan: Continue with pramipexole at above doses, and can decrease her night dose to 1.5mg or use Tylenol/Ibuprofen for the muscle cramps experienced at night Patient warned of side effects of increased dose including sleep and drop attacks and hypotension. (3) Anxiety: Status: Acute Assessment & Plan: Pt states her anxiety has improved. Plan: Continue taking Lexapro dose 10mg and can use 0.5mg Ativan as needed Encouraged to use only as needed to avoid body dependence from medication Pt is also advised to engage in exercise and take deep breaths throughout the day, especially in periods of high anxiety Sent refill for her Ativan (4) Altered taste: Status: Acute Assessment & Plan: Pt continues to complain of dysgeusia. Pt has a hx of sinus issues s/p chemotherapy treatment. Pt may have some nasal polyps which could be affecting sense of taste. Patient's altered taste is somewhat resolved, as her food doesn't taste salty, but does feel like her taste sensation has decreased. Patient's B12 and Zinc levels were WNL. ENT specialist stated that patient's taste buds may not come back (d/t age), and no intervention can be done at this time. Lamps Tester And Inspector noted that an increase in Trelegy could increse in side effects possibly contributing to her altered sense of taste. Plan: Continue to avoid foods that worsen her new baseline of lack of taste buds (5) Adenoma of left adrenal gland: Status: Acute Assessment & Plan: CT abdomen/pelvis completed on 06/11/2024 findings include: 19 mm fat-containing left adrenal adenoma, possible right renal cyst 30 mm, bilateral 1 to 2 mm renal calculi, severe scarring right kidney No hydronephrosis or uretral calculi Currently patient denies all symptoms of aldosterone/corticosteroid excess. Denies hypertension, hyperpigmentation, headaches Will consider dexamethasone suppression test next visit to rule out functional adrenal adenoma. Plan: Plan: - To discuss with patient next visit about dexamethasone suppression test during next visit Plan Plan of care discussed with Attending Dr. Cassie Rico MD, PGY-2 Advanced Care Planning Advance care planning discussed with:: patient Office Procedures [facility] Level of Care Nursing/Assessment Patient Status: Established Patient Nursing Assessment/Reassessment: Medication Reconciliation, Update PMH in EMR and Vital Signs Coordination of Care: Complex Care and Chronic Disease 1-5, Consent,records obtained, informed consent, Education Simp Pt/Fam, Lab and Imaging orders and Staff clarify orders Established Patient Charge Established Patient Point Assignment: 100 Established Patient Point Charge: EP Level 3 (80-115)
== END 2024-09-06 14:32 | disposition home or self-care (01) ==
LOC: HODAHC 13:26
PROVIDERS: PCP Student in an Organized Health Care Education/Training Program; Referring Provider Student in an Organized Health Care Education/Training Program; Supervising Provider Internal Medicine; Visit Provider Student in an Organized Health Care Education/Training Program
DX: B37.0 Candidal stomatitis (principal); R49.0 Dysphonia; J44.9 Chronic obstructive pulmonary disease, unspecified; G25.81 Restless legs syndrome; R43.2 Parageusia; Z92.21 Personal history of antineoplastic chemotherapy; D35.02 Benign neoplasm of left adrenal gland; N20.0 Calculus of kidney; Z92.3 Personal history of irradiation; C34.90 Malignant neoplasm of unspecified part of unspecified bronchus or lung; F41.9 Anxiety disorder, unspecified
CPT/HCPCS: 99213; G0463

== ENCOUNTER 2024-10-25 15:04 | Outpatient (AMB) | payer MEDICARE, SELFPAY ==
--- NOTE | 2024-10-25 15:19 | ACNOTE_ITS ---
Allergies/Meds Allergies & Medications Allergies cefaclor Allergy (Verified 10/26/24 09:23) Redness of Skin prednisone Adverse Reaction (Intermediate, Verified 10/26/24 09:23) AGITATED Medication Reconciliation sennosides 8.6 mg tablet (Senna Laxative) 8.6 mg PO QDAY #2 tabs 05/28/23 [Rx Confirmed 10/26/24] clotrimazole 10 mg herbert 10 mg mucous membrane 5XD thrush #70 tabs 06/05/23 [Rx Confirmed 10/26/24] escitalopram oxalate 10 mg tablet 10 mg PO QDAY anxiety #90 tabs 12/25/23 [Rx Confirmed 10/26/24] azithromycin 250 mg tablet 250 mg PO UD #36 tabs 03/22/24 [Rx Confirmed 10/26/24] pramipexole 0.5 mg tablet 0.5 mg PO TID RLD #270 tabs 03/31/24 [Rx Confirmed 10/26/24] hyoscyamine sulfate 0.125 mg tablet 0.125 mg PO QID PRN pain #20 tabs 05/31/24 [Rx Confirmed 10/26/24] fluticasone fur. 100 mcg-umeclid 62.5 mcg-vilant 25 mcg inhalat.powder (Trelegy Ellipta) 1 inh inhalation QDAY 1 month #60 ea 09/06/24 [Rx Confirmed 10/26/24] lorazepam 0.5 mg tablet 0.5 mg PO BID PRN anxiety #60 tabs 09/06/24 [Rx Confirmed 10/26/24] roflumilast 250 mcg tablet 250 mcg PO HS #90 tabs 10/08/24 [Rx Confirmed 10/26/24] albuterol sulfate 90 mcg/actuation aerosol inhaler 2 inh inhalation Q4HR PRN Shortness Of Breath 1 month #8.5 grams 10/22/24 [Rx Confirmed 10/26/24] amoxicillin 875 mg-potassium clavulanate 125 mg tablet 1 tab PO Q12H #10 tabs 10/25/24 [Rx Confirmed 10/26/24] MA Intake Visit Data Collection New Patient or Established: Established Patient (seen at [facility] within 3 years) Seen by Clinical Staff ONLY (RN/EDUARDO): No Pain Present Currently: No Pain scale:: 0 Pain Scale Used: Osullivan-Becker/Numerical Histopathologist Required: No PCP or OBGYN visit in last 3 months: Yes Hx Now: No Do You Feel Safe at Home: Yes Authorities Contacted: N/A Smoking Status Smoking Status: Former smoker For Televisit only Telemed Video/Phone Visit: Yes Verbal consent obtained for Telemed visit?: Yes Verbal Consent witness name: TERRENCE KWOK MA Telemed Video/Phone visit w/Clinical Staff: 21-30 min Immunization / Flu Flu Vaccine in the Last 12 Months: Yes Flu Vaccine Exclusion Criteria: No Exclusion Criteria Past Medical History Past Medical History NEUROLOGIC: Negative Neurological Disorders or Seizures CARDIAC: Positive Heart Murmur; Negative Cardiac Disorders or Congestive Heart Failure RESPIRATORY: Positive Chronic Obstructive Pulmonary Disease (COPD), Asthma, Bronchitis, Cough, Sputum Production and Wheezing GASTROINTESTINAL: Positive Gastrointestinal Disorders, Gall Bladder Disease, Gastrointestinal Bleed and Gastroesophageal Reflux Disease; Negative Hepatitis GENITOURINARY: Positive Kidney Stones (FOR THIS PROC (HAD PROC 2009)); Negative Genitourinary Disorders or Renal Disease REPRODUCTIVE: Positive Breast Cancer and Previous Pregnancies MUSCULOSKELETAL: Positive Arthritis, Osteoporosis and Degenerative Joint Disease ENT: Positive Cataracts, Ear Infection and Deafness ENDOCRINE: Negative Endocrine Disorders, Diabetes Mellitus Type 1 or Diabetes Mellitus Type 2 HEMATOLOGIC: Negative Blood Disorders or Sickle Cell Disease PSYCHO/SOCIAL: Positive Depression and Anxiety OTHER HISTORY: Positive Chemotherapy (2011), Radiation Therapy (January 2023), Cancer, Breast Cancer and Cervical Cancer; Negative Hospitalization, Down Syndrome, Developmental Delay, Shingles, Falls, Blood Transfusions, Blood Transfusion Reaction, Anesthesia Reactions, Organ Transplant, Hyperbaric Therapy, MRSA, VRSA, Vancomycin-Resistant Enterococci, Chicken Pox, Measles, Mumps or Clostridium Difficile Family History FAMILY HISTORY: Positive Family Respiratory Disorders (COPD), Family Cardiac Disorders, Family Gastrointestinal Problems (Trouble going to the bathroom. Trouble holding down food.), Family Cancer and Family Surgery; Negative Family Psychiatric Problems or Family Anesthesia Reaction Surgical History SURGICAL: Positive Lumpectomy and Hysterectomy; Negative Abdominal Surgery or Organ Transplant Social History SMOKING STATUS: Smoking status: Former smoker SECOND HAND EXPOSURE: second hand exposure: Yes ALCOHOL: Alcohol Intake: Never HOUSING: Housing: House LIVES WITH: Lives With: Alone Patient Portal Questionaires PHQ-9 PHQ-2 Over the last 2 weeks, how often have you been bothered by any of the following problems? 1. Little interest or pleasure in doing things: not at all PHQ-9 8. Moving or speaking so slowly that other people could have noticed? - Or the opposite - being so fidgety or restless that you have been moving around a lot more than usual: not at all Source: Developed by Drs. Mati Black, Yue Jones, Rigo Oliveira and colleagues, with an educational aggie from [employer]. Social History Living Situation History Housing: House Tobacco History Smoking Status: Former smoker Second Hand Smoke Exposure: Yes Alcohol History Alcohol Intake: Never Domestic Abuse History Do You Feel Safe at Home: Yes Review of Systems Report any current symptoms Only answer those that you have currently: Past Medical History Past Medical History Have you ever been diagnosed with any of the following: Neurological Problems Seizures: No Cardiology Problems Heart Murmur: Yes Congestive Heart Failure: No Respiratory Problems Chronic Obstructive Pulmonary Disease (COPD): Yes Asthma: Yes Bronchitis: Yes Hx Cough: Yes Cough: Yes Wheezing: Yes Stomache/Intestinal Problems Hepatitis: No Gall Bladder Disease: Yes Gastrointestinal Bleed: Yes Gastroesophageal Reflux Disease: Yes Genital/Urinary Problems Renal Disease: No Kidney Stones: Yes (FOR THIS PROC (HAD PROC 2009)) Reproductive Problems Breast Cancer: Yes Previous Pregnancies: Yes Musculoskeletal Problems Arthritis: Yes Osteoporosis: Yes Degenerative Joint Disease: Yes Head,Eye,Nose,Throat Problems Cataracts: Yes Chronic Ear Infections: Yes Deafness: Yes Endocrine Problems Diabetes Mellitus Type 1: No Diabetes Mellitus Type 2: No Blood Problems Sickle Cell Disease: No Psychologic Problems Depression: Yes Anxiety: Yes Other Problems Hospitalization: No Down Syndrome: No Developmental Delay: No Shingles: No Falls: No Blood Transfusions: No Blood Transfusion Reaction: No Anesthesia Reactions: No Organ Transplant: No Chemotherapy: Yes (2011) Radiation Therapy: Yes (January 2023) Hyperbaric Therapy: No MRSA: No VRSA: No Vancomycin-Resistant Enterococci: No Chicken Pox: No Measles: No Mumps: No Clostridium Difficile: No Cancer: Yes Cervical Cancer: Yes Surgical History Hysterectomy: Yes History of Present Illness HPI Narrative Ms. Hollingsworth is a 77-year-old female with a PMHx of lung cancer s/p completion of radiation in summer, restless leg syndrome, bladder and rectal prolapse, H/O multiple kidney stones and anxiety requested a phone visit today. Patient states she has been feeling ill since yesterday, including spiking a 100.4F temperature and copius green phlegm production, and congestion. Patient denies any SOB and her O2 saturation has been well above 88%. Patient denies losing any appetite or having any sick contacts. Patient was concerned she had these symptoms shortly after decreasing her Trelegy inhaler from 200mcg to 100mcg and Azithromycin 2 times/week. At this point, patient would benefit from outpatient Abx. She kindly requested to not come to the hospital. Patient will be sent Augmentin twice daily for 5 days and will have patient take Azithromycin 500mg today, followed by 250mg daily for an additional 4 days. Patient was advised to call the [facility] if symptoms worsen, and to call again next week for updates regarding her symptoms. Review of Systems Review of Systems Systems Reviewed: All systems reviewed, normal except as documented Objective/Exam Narrative Physical exam: Visit conducted via phone Assessment & Plan Diagnosis / Problem List (1) Community acquired bacterial pneumonia: Status: Acute Assessment & Plan: Patient presented with one episode of fever 100.4 which resolved after Tylenol, and copious green phelgm production, and nasal congestion. Patient clinically appears to have symptoms of CAP. Patient didn't want to go to the hospital for ER visit or get any scans. Plan: -Will treat as a CAP with Augmentin BID x 5 days and Azithromycin 500mg x 1 day, followed by 250mg daily x 4 additional days -Return back to twice daily Azithromycin weekly after above regimen is completed -Advised patient to call [facility] if symptoms worsen prior to next week -Will f/u next week for further updates -Continue with O2 delivery with O2 saturation above 88% (2) COPD (chronic obstructive pulmonary disease): Status: Chronic Qualifiers: COPD type: unspecified COPD Qualified Code(s): J44.9 - Chronic obstructive pulmonary disease, unspecified Assessment & Plan: Pt continues to use NC at all times. Pt has mild chronic wheezing mostly located in b/l bases. Pt uses her albuterol inhaler and Trelegy inahler daily. Plan: -Continue to use O2 and wean as tolerated, with O2 sat goal between 88-92% -Pt to use inhalers as needed. -Pt encouraged to take deep breaths and to rinse after each use. -Continue with Roflumilast -Continue with Azithromycin dose to 2 times/week and Trelegy dose 100mcg, however depending on next week update and recent bout of CAP symptoms, may consider increasing dosages respectively -[facility] form for Trelegy sent to their fax center for coverage -Patient is using a mouth wash which is effective in removing the thrush noticed in her oral cavity (3) Restless leg syndrome: Status: Chronic Assessment & Plan: Pt takes Pramipexole 0.5mg TID for her RLS, 0.5mg in AM and 1mg 1-2 hours prior to bedtime. Pt states her symptoms have mostly resolved with the increased dose, but noticed new muscle cramps in the last 3 weeks Plan: Continue with pramipexole at above doses, and can decrease her night dose to 1.5mg or use Tylenol/Ibuprofen for the muscle cramps experienced at night Patient warned of side effects of increased dose including sleep and drop attacks and hypotension. (4) Anxiety: Status: Acute Assessment & Plan: Pt states her anxiety has improved. Plan: Continue taking Lexapro dose 10mg and can use 0.5mg Ativan as needed Encouraged to use only as needed to avoid body dependence from medication Pt is also advised to engage in exercise and take deep breaths throughout the day, especially in periods of high anxiety Sent refill for her Ativan Plan Plan of care discussed with Attending Dr. Cassie Rico MD, PGY-2 Additional Assessment Internal Medicine Attending Note: Case discussed with and agree with note and management plan of Resident Physician as per Resident's Note above. Issues of concern for present visit are as follows: [facility] Patient spiking temperatures to over 100 degrees, cough productive of green sputum. Oxygen saturation remaining above 88%. Symptoms started after decreasing Trelegy inhaler dose and decreasing azithromycin to 2 times a week. Patient requesting to avoid emergency room and hospitalization. We will cover the patient with Augmentin and azithromycin. Advised to call office if symptoms worsen, or to proceed to emergency room. Will follow-up in 1 week. Marco Matthews MD Advanced Care Planning Advance care planning discussed with:: patient Physician Billing Established Patient Established Patient: E/M Level 2-CPT 65601 Office Procedures [facility] Level of Care Nursing/Assessment Patient Status: Established Patient Nursing Assessment/Reassessment: Medication Reconciliation and Update PMH in EMR Coordination of Care: Complex Care and Chronic Disease 1-5, Consent,records obtained, informed consent, Education Simp Pt/Fam and Staff clarify orders Established Patient Charge Established Patient Point Assignment: 70 Telehealth Telemed Phone/Video with patient at home & Dr,PA,CYCLE ANALYST: Yes
== END 2024-10-25 15:45 | disposition home or self-care (01) ==
LOC: HODAHC 15:04
PROVIDERS: PCP Student in an Organized Health Care Education/Training Program; Referring Provider Student in an Organized Health Care Education/Training Program; Supervising Provider Internal Medicine; Visit Provider Student in an Organized Health Care Education/Training Program
DX: J15.9 Unspecified bacterial pneumonia (principal); J44.0 Chronic obstructive pulmonary disease with (acute) lower respiratory infection; G25.81 Restless legs syndrome; F41.9 Anxiety disorder, unspecified
CPT/HCPCS: 99212; G0463

== ENCOUNTER 2024-11-01 15:18 | Outpatient (AMB) | payer MEDICARE, SELFPAY ==
[2024-11-01 15:28] VITALS: BP 121/80; PULSE 92; RESP 18; TEMP 36.8; O2SAT 83; BMI 25.2
--- NOTE | 2024-11-01 15:28 | PD.RESCLINIC ---
Vital Signs 11/01/24 15:28 Height 1.52 m Height Method Stated Weight 58.173 kg Weight Measurement Method Standing Scale BMI 25.2 BP 121/80 Blood Pressure Source Automatic Cuff Blood Pressure Location Right Upper Arm Position Sitting Respiration 18 Pulse 92 Pulse Source Monitor Temp 98.2 F Temp Source Temporal Artery Scan Pulse Oximetry (%) 83 L Oxygen Delivery Method Room Air Allergies/Meds Allergies & Medications Allergies cefaclor Allergy (Verified 11/01/24 15:29) Redness of Skin prednisone Adverse Reaction (Intermediate, Verified 11/01/24 15:29) AGITATED Medication Reconciliation sennosides 8.6 mg tablet (Senna Laxative) 8.6 mg PO QDAY #2 tabs 05/28/23 [Rx Confirmed 11/01/24] clotrimazole 10 mg herbert 10 mg mucous membrane 5XD thrush #70 tabs 06/05/23 [Rx Confirmed 11/01/24] escitalopram oxalate 10 mg tablet 10 mg PO QDAY anxiety #90 tabs 12/25/23 [Rx Confirmed 11/01/24] azithromycin 250 mg tablet 250 mg PO UD #36 tabs 03/22/24 [Rx Confirmed 11/01/24] hyoscyamine sulfate 0.125 mg tablet 0.125 mg PO QID PRN pain #20 tabs 05/31/24 [Rx Confirmed 11/01/24] fluticasone fur. 100 mcg-umeclid 62.5 mcg-vilant 25 mcg inhalat.powder (Trelegy Ellipta) 1 inh inhalation QDAY 1 month #60 ea 09/06/24 [Rx Confirmed 11/01/24] lorazepam 0.5 mg tablet 0.5 mg PO BID PRN anxiety #60 tabs 09/06/24 [Rx Confirmed 11/01/24] roflumilast 250 mcg tablet 250 mcg PO HS #90 tabs 10/08/24 [Rx Confirmed 11/01/24] albuterol sulfate 90 mcg/actuation aerosol inhaler 2 inh inhalation Q4HR PRN Shortness Of Breath 1 month #8.5 grams 10/22/24 [Rx Confirmed 11/01/24] amoxicillin 875 mg-potassium clavulanate 125 mg tablet 1 tab PO Q12H #10 tabs 10/25/24 [Rx Confirmed 04/28/25] gabapentin 600 mg tablet,extended release 24 hr 600 mg PO QPM #30 tabs 11/01/24 [Rx] MA Intake Visit Data Collection New Patient or Established: Established Patient (seen at [facility] within 3 years) Seen by Clinical Staff ONLY (RN/MA): No Pain Present Currently: No Pain scale:: 0 Pain Scale Used: Osullivan-Becker/Numerical Platen Grinder Required: No PCP or OBGYN visit in last 3 months: No Hx Now: No Do You Feel Safe at Home: Yes Authorities Contacted: N/A Smoking Status Smoking Status: Former smoker Immunization / Flu Flu Vaccine in the Last 12 Months: No Flu Vaccine Exclusion Criteria: No Exclusion Criteria Past Medical History Past Medical History NEUROLOGIC: Negative Neurological Disorders or Seizures CARDIAC: Positive Heart Murmur; Negative Cardiac Disorders or Congestive Heart Failure RESPIRATORY: Positive Chronic Obstructive Pulmonary Disease (COPD), Asthma, Bronchitis, Cough, Sputum Production and Wheezing GASTROINTESTINAL: Positive Gastrointestinal Disorders, Gall Bladder Disease, Gastrointestinal Bleed and Gastroesophageal Reflux Disease; Negative Hepatitis GENITOURINARY: Positive Kidney Stones (FOR THIS PROC (HAD PROC 2009)); Negative Genitourinary Disorders or Renal Disease REPRODUCTIVE: Positive Breast Cancer and Previous Pregnancies MUSCULOSKELETAL: Positive Arthritis, Osteoporosis and Degenerative Joint Disease ENT: Positive Cataracts, Ear Infection and Deafness ENDOCRINE: Negative Endocrine Disorders, Diabetes Mellitus Type 1 or Diabetes Mellitus Type 2 HEMATOLOGIC: Negative Blood Disorders or Sickle Cell Disease PSYCHO/SOCIAL: Positive Depression and Anxiety OTHER HISTORY: Positive Chemotherapy (2011), Radiation Therapy (January 2023), Cancer, Breast Cancer and Cervical Cancer; Negative Hospitalization, Down Syndrome, Developmental Delay, Shingles, Falls, Blood Transfusions, Blood Transfusion Reaction, Anesthesia Reactions, Organ Transplant, Hyperbaric Therapy, MRSA, VRSA, Vancomycin-Resistant Enterococci, Chicken Pox, Measles, Mumps or Clostridium Difficile Family History FAMILY HISTORY: Positive Family Respiratory Disorders (COPD), Family Cardiac Disorders, Family Gastrointestinal Problems (Trouble going to the bathroom. Trouble holding down food.), Family Cancer and Family Surgery; Negative Family Psychiatric Problems or Family Anesthesia Reaction Surgical History SURGICAL: Positive Lumpectomy and Hysterectomy; Negative Abdominal Surgery or Organ Transplant Social History SMOKING STATUS: Smoking status: Former smoker SECOND HAND EXPOSURE: second hand exposure: Yes ALCOHOL: Alcohol Intake: Never HOUSING: Housing: House LIVES WITH: Lives With: Alone Patient Portal Questionaires PHQ-9 PHQ-2 Over the last 2 weeks, how often have you been bothered by any of the following problems? 1. Little interest or pleasure in doing things: not at all PHQ-9 8. Moving or speaking so slowly that other people could have noticed? - Or the opposite - being so fidgety or restless that you have been moving around a lot more than usual: not at all Source: Developed by Drs. Mati Black, Yue Jones, Rigo Oliveira and colleagues, with an educational aggie from [employer]. Social History Living Situation History Housing: House Tobacco History Smoking Status: Former smoker Second Hand Smoke Exposure: Yes Alcohol History Alcohol Intake: Never Domestic Abuse History Do You Feel Safe at Home: Yes Review of Systems Report any current symptoms Only answer those that you have currently: Past Medical History Past Medical History Have you ever been diagnosed with any of the following: Neurological Problems Seizures: No Cardiology Problems Heart Murmur: Yes Congestive Heart Failure: No Respiratory Problems Chronic Obstructive Pulmonary Disease (COPD): Yes Asthma: Yes Bronchitis: Yes Hx Cough: Yes Cough: Yes Wheezing: Yes Stomache/Intestinal Problems Hepatitis: No Gall Bladder Disease: Yes Gastrointestinal Bleed: Yes Gastroesophageal Reflux Disease: Yes Genital/Urinary Problems Renal Disease: No Kidney Stones: Yes (FOR THIS PROC (HAD PROC 2009)) Reproductive Problems Breast Cancer: Yes Previous Pregnancies: Yes Musculoskeletal Problems Arthritis: Yes Osteoporosis: Yes Degenerative Joint Disease: Yes Head,Eye,Nose,Throat Problems Cataracts: Yes Chronic Ear Infections: Yes Deafness: Yes Endocrine Problems Diabetes Mellitus Type 1: No Diabetes Mellitus Type 2: No Blood Problems Sickle Cell Disease: No Psychologic Problems Depression: Yes Anxiety: Yes Other Problems Hospitalization: No Down Syndrome: No Developmental Delay: No Shingles: No Falls: No Blood Transfusions: No Blood Transfusion Reaction: No Anesthesia Reactions: No Organ Transplant: No Chemotherapy: Yes (2011) Radiation Therapy: Yes (January 2023) Hyperbaric Therapy: No MRSA: No VRSA: No Vancomycin-Resistant Enterococci: No Chicken Pox: No Measles: No Mumps: No Clostridium Difficile: No Cancer: Yes Cervical Cancer: Yes Surgical History Hysterectomy: Yes History of Present Illness HPI Narrative Ms. Hollingsworth is a 79-year-old female with past medical history of lung cancer status post completion of radiation in summer 2022, restless leg syndrome, bladder and rectal prolapse, history of multiple kidney stones and anxiety who is here for 1 week follow-up after being treated for pneumonia clinically and hospital discharge follow-up status post recent hospitalization. Of note, patient received Augmentin and azithromycin for 2 days, and had to go to the ER due to patient having severe shortness of breath, despite only being on 2 L, saturating 88%. Patient was admitted to the hospital for further management of acute on chronic hypoxic respiratory failure secondary to COPD exacerbation and community-acquired pneumonia. X-ray revealed severe pneumonia on left upper lobe with no CHF. Throughout hospital course, patient received levofloxacin, DuoNebs, and steroids, and slowly down titrated to her home 2 L nasal cannula saturating well above 88%. Later in course, patient had a run of bradycardia, requiring dopamine drip, which patient was able to come off after patient was well diuresed and was more calm. Patient was discharged with Medrol pack and 4 more days of levofloxacin. Due to nature of patient's rapid onset of pneumonia and shortness of breath after decreasing patient's Trelegy from 200 mcg to 100 mcg, will increase patient's dose back to a higher dose. Patient also requested to try another medication for her restless leg syndrome, as pramipexole is not able to help alleviate her symptoms effectively anymore. Patient will try a trial of 300 mg of gabapentin twice daily as needed. Review of Systems Review of Systems Systems Reviewed: All systems reviewed, normal except as documented Objective/Exam Narrative Physical exam: Constitutional: AOx3, able to speak full sentences with no acute distress. Patient seen using portable O2 with 2L NC, satting 92%. HEENT: NC/AT, PERRLA, oral mucosa moist with mild thrush noticed on her end of her lips CVS: RRR, S1-S2 present, no murmurs RESP: Clear to auscultation bilaterally. No wheezing or crackles appreciated. Equal air movement throughout. GI: Soft, non distended, non tender to palpation, NBS MSK: No peripheral edema, peripheral pulses present Skin: warm and dry, no rashes Neuro: tumblers supervisor II-XII grossly intact. Sensation grossly intact. Assessment & Plan Diagnosis / Problem List (1) Community acquired bacterial pneumonia: Status: Acute Assessment & Plan: Patient presented with one episode of fever 100.4 which resolved after Tylenol, and copious green phelgm production, and nasal congestion. Patient clinically appears to have symptoms of CAP. Patient didn't want to go to the hospital for ER visit or get any scans last week. Unfortunately, patient was unable to tolerate oral antibiotics with Augmentin and azithromycin, and had to go to the ER after exacerbation of her symptoms on 10/27/2024. Plan: - Patient will continue with levofloxacin for 1 more day, and Medrol pack for another 3 more days - Will return back to her azithromycin 3 times daily - Continue with O2 delivery with O2 saturation above 88% (2) COPD (chronic obstructive pulmonary disease): Status: Chronic Qualifiers: COPD type: unspecified COPD Qualified Code(s): J44.9 - Chronic obstructive pulmonary disease, unspecified Assessment & Plan: Pt continues to use NC at all times. Pt uses her albuterol inhaler and Trelegy inhaler daily. Plan: -Continue to use O2 and wean as tolerated, with O2 sat goal between 88-92% -Pt to use inhalers as needed. -Pt encouraged to take deep breaths and to rinse after each use. -Continue with Roflumilast -Due to recent hospitalization for COPD exacerbation and, will increase patient's Trelegy to 200 mcg, and will have patient follow-up with the correct forms to fax amended prescription -Patient is using a mouth wash which is effective in removing the thrush noticed in her oral cavity (3) Restless leg syndrome: Status: Chronic Assessment & Plan: Pt takes Pramipexole 0.5mg TID for her RLS, 0.5mg in AM and 1mg 1-2 hours prior to bedtime, however, patient states that this regimen currently is not as effective anymore. Plan: Patient requested to try another medication, gabapentin, and will start patient on 300 mg twice daily as needed If patient's symptoms continue to worsen or persist, will try K2 to help with her muscle cramps (4) Anxiety: Status: Acute Assessment & Plan: Pt states her anxiety has improved. Plan: Continue taking Lexapro dose 10mg and can use 0.5mg Ativan as needed Encouraged to use only as needed to avoid body dependence from medication Pt is also advised to engage in exercise and take deep breaths throughout the day, especially in periods of high anxiety Plan Plan of care discussed with Attending Dr. Cassie Rico MD, PGY-2 Advanced Care Planning Advance care planning discussed with:: patient Office Procedures [facility] Level of Care Nursing/Assessment Patient Status: Established Patient Nursing Assessment/Reassessment: Medication Reconciliation, Update PMH in EMR and Vital Signs Coordination of Care: Complex Care and Chronic Disease 1-5, Consent,records obtained, informed consent, Education Simp Pt/Fam and Staff clarify orders Established Patient Charge Established Patient Point Assignment: 85 Established Patient Point Charge: Level 3 (80-115)
== END 2024-11-01 16:08 | disposition home or self-care (01) ==
LOC: HODAHC 15:18
PROVIDERS: PCP Student in an Organized Health Care Education/Training Program; Referring Provider Student in an Organized Health Care Education/Training Program; Supervising Provider Internal Medicine; Visit Provider Student in an Organized Health Care Education/Training Program
DX: J44.0 Chronic obstructive pulmonary disease with (acute) lower respiratory infection (principal); J18.9 Pneumonia, unspecified organism; G25.81 Restless legs syndrome; F41.9 Anxiety disorder, unspecified
CPT/HCPCS: 99213; G0463

== ENCOUNTER 2024-11-22 15:07 | Outpatient (AMB) | payer MEDICARE, SELFPAY ==
[2024-11-22 15:35] VITALS: BP 125/74; PULSE 107; RESP 18; TEMP 36.2; O2SAT 88; BMI 24.5
--- NOTE | 2024-11-22 15:35 | ACNOTE_ITS ---
Vital Signs 11/22/24 15:35 Height 1.52 m Height Method Stated Weight 56.812 kg Weight Measurement Method Standing Scale BMI 24.5 BP 125/74 Blood Pressure Source Automatic Cuff Blood Pressure Location Right Upper Arm Position Sitting Respiration 18 Pulse 107 H Pulse Source Monitor Temp 97.2 F Temp Source Temporal Artery Scan Pulse Oximetry (%) 88 L Oxygen Delivery Method Room Air Allergies/Meds Allergies & Medications Allergies cefaclor Allergy (Verified 11/22/24 15:35) Redness of Skin prednisone Adverse Reaction (Intermediate, Verified 11/22/24 15:35) AGITATED Medication Reconciliation sennosides 8.6 mg tablet (Senna Laxative) 8.6 mg PO QDAY #2 tabs 05/28/23 [Rx Confirmed 11/22/24] escitalopram oxalate 10 mg tablet 10 mg PO QDAY anxiety #90 tabs 12/25/23 [Rx Confirmed 11/22/24] hyoscyamine sulfate 0.125 mg tablet 0.125 mg PO QID PRN pain #20 tabs 05/31/24 [Rx Confirmed 11/22/24] fluticasone fur. 100 mcg-umeclid 62.5 mcg-vilant 25 mcg inhalat.powder (Trelegy Ellipta) 1 inh inhalation QDAY 1 month #60 ea 09/06/24 [Rx Confirmed 11/22/24] roflumilast 250 mcg tablet 250 mcg PO HS #90 tabs 10/08/24 [Rx Confirmed 11/22/24] albuterol sulfate 90 mcg/actuation aerosol inhaler 2 inh inhalation Q4HR PRN Shortness Of Breath 1 month #8.5 grams 10/22/24 [Rx Confirmed 11/22/24] amoxicillin 875 mg-potassium clavulanate 125 mg tablet 1 tab PO Q12H #10 tabs 10/25/24 [Rx Confirmed 11/22/24] gabapentin 600 mg tablet,extended release 24 hr 600 mg PO QPM #30 tabs 11/01/24 [Rx Confirmed 11/22/24] azithromycin 250 mg tablet 250 mg PO UD #36 tabs 11/22/24 [Rx] clotrimazole 10 mg herbert 10 mg mucous membrane 5XD thrush #70 tabs 11/22/24 [Rx] lorazepam 0.5 mg tablet 0.5 mg PO BID PRN anxiety #60 tabs 11/22/24 [Rx] MA Intake Visit Data Collection New Patient or Established: Established Patient (seen at [facility] within 3 years) Seen by Clinical Staff ONLY (RN/MA): No Pain Present Currently: No Pain scale:: 0 Pain Scale Used: Osullivan-Becker/Numerical Optical Instrument Specialist Required: No PCP or OBGYN visit in last 3 months: Yes Hx Now: No Do You Feel Safe at Home: Yes Authorities Contacted: N/A Smoking Status Smoking Status: Former smoker Immunization / Flu Flu Vaccine in the Last 12 Months: No Flu Vaccine Exclusion Criteria: No Exclusion Criteria Past Medical History Past Medical History NEUROLOGIC: Negative Neurological Disorders or Seizures CARDIAC: Positive Heart Murmur; Negative Cardiac Disorders or Congestive Heart Failure RESPIRATORY: Positive Chronic Obstructive Pulmonary Disease (COPD), Asthma, Bronchitis, Cough, Sputum Production and Wheezing GASTROINTESTINAL: Positive Gastrointestinal Disorders, Gall Bladder Disease, Gastrointestinal Bleed and Gastroesophageal Reflux Disease; Negative Hepatitis GENITOURINARY: Positive Kidney Stones (FOR THIS PROC (HAD PROC 2009)); Negative Genitourinary Disorders or Renal Disease REPRODUCTIVE: Positive Breast Cancer and Previous Pregnancies MUSCULOSKELETAL: Positive Arthritis, Osteoporosis and Degenerative Joint Disease ENT: Positive Cataracts, Ear Infection and Deafness ENDOCRINE: Negative Endocrine Disorders, Diabetes Mellitus Type 1 or Diabetes Mellitus Type 2 HEMATOLOGIC: Negative Blood Disorders or Sickle Cell Disease PSYCHO/SOCIAL: Positive Depression and Anxiety OTHER HISTORY: Positive Chemotherapy (2011), Radiation Therapy (January 2023), Cancer, Breast Cancer and Cervical Cancer; Negative Hospitalization, Down Syndrome, Developmental Delay, Shingles, Falls, Blood Transfusions, Blood Transfusion Reaction, Anesthesia Reactions, Organ Transplant, Hyperbaric Therapy, MRSA, VRSA, Vancomycin-Resistant Enterococci, Chicken Pox, Measles, Mumps or Clostridium Difficile Family History FAMILY HISTORY: Positive Family Respiratory Disorders (COPD), Family Cardiac Disorders, Family Gastrointestinal Problems (Trouble going to the bathroom. Trouble holding down food.), Family Cancer and Family Surgery; Negative Family Psychiatric Problems or Family Anesthesia Reaction Surgical History SURGICAL: Positive Lumpectomy and Hysterectomy; Negative Abdominal Surgery or Organ Transplant Social History SMOKING STATUS: Smoking status: Former smoker SECOND HAND EXPOSURE: second hand exposure: Yes ALCOHOL: Alcohol Intake: Never HOUSING: Housing: House LIVES WITH: Lives With: Alone Patient Portal Questionaires PHQ-9 PHQ-2 Over the last 2 weeks, how often have you been bothered by any of the following problems? 1. Little interest or pleasure in doing things: not at all PHQ-9 8. Moving or speaking so slowly that other people could have noticed? - Or the opposite - being so fidgety or restless that you have been moving around a lot more than usual: not at all Source: Developed by Drs. Mati Black, Yue Jones, Rigo Oliveira and colleagues, with an educational aggie from [employer]. Social History Living Situation History Housing: House Tobacco History Smoking Status: Former smoker Second Hand Smoke Exposure: Yes Alcohol History Alcohol Intake: Never Domestic Abuse History Do You Feel Safe at Home: Yes Review of Systems Report any current symptoms Only answer those that you have currently: Past Medical History Past Medical History Have you ever been diagnosed with any of the following: Neurological Problems Seizures: No Cardiology Problems Heart Murmur: Yes Congestive Heart Failure: No Respiratory Problems Chronic Obstructive Pulmonary Disease (COPD): Yes Asthma: Yes Bronchitis: Yes Hx Cough: Yes Cough: Yes Wheezing: Yes Stomache/Intestinal Problems Hepatitis: No Gall Bladder Disease: Yes Gastrointestinal Bleed: Yes Gastroesophageal Reflux Disease: Yes Genital/Urinary Problems Renal Disease: No Kidney Stones: Yes (FOR THIS PROC (HAD PROC 2009)) Reproductive Problems Breast Cancer: Yes Previous Pregnancies: Yes Musculoskeletal Problems Arthritis: Yes Osteoporosis: Yes Degenerative Joint Disease: Yes Head,Eye,Nose,Throat Problems Cataracts: Yes Chronic Ear Infections: Yes Deafness: Yes Endocrine Problems Diabetes Mellitus Type 1: No Diabetes Mellitus Type 2: No Blood Problems Sickle Cell Disease: No Psychologic Problems Depression: Yes Anxiety: Yes Other Problems Hospitalization: No Down Syndrome: No Developmental Delay: No Shingles: No Falls: No Blood Transfusions: No Blood Transfusion Reaction: No Anesthesia Reactions: No Organ Transplant: No Chemotherapy: Yes (2011) Radiation Therapy: Yes (January 2023) Hyperbaric Therapy: No MRSA: No VRSA: No Vancomycin-Resistant Enterococci: No Chicken Pox: No Measles: No Mumps: No Clostridium Difficile: No Cancer: Yes Cervical Cancer: Yes Surgical History Hysterectomy: Yes History of Present Illness HPI Narrative Ms. Hollingsworth is a 79-year-old female with past medical history of lung cancer status post completion of radiation in summer 2022, restless leg syndrome, bladder and rectal prolapse, history of multiple kidney stones and anxiety who is here for follow-up visit. Patient has been complaining of 3-4 watery bowel movements for the last 2 weeks. Patient is also concerned that her new medication that was recently added for her restless leg syndrome, gabapentin 300 mg twice daily has been helpful however after having severe side effects including nausea/headache, patient did not want to continue taking medication. Patient has been controlling her restless leg syndrome with her short acting benzodiazepine. Recommended patient to try half dose of gabapentin only when patient has symptoms of restless leg syndrome, and see if side effects are decreased. Due to patient's other risk factors for bowel movements including her history of rectal prolapse and her chronic antibiotic use, will treat patient as having chronic diarrhea in the setting of possible IBS, and will recommend patient trying [id number] antidiarrheal such as Imodium. Patient has a low risk for C. difficile as patient denies having a foul odor smell, green color stool, and fevers. Otherwise, patient has no complaints of dyspnea or chronic cough, and is still using the low-dose Trelegy. Patient also is concerned that her dysgeusia is more chronic now, however does notice that she has oral thrush and states that sometimes she forgets to rinse her mouth after using her inhaler. Patient would like to the clotrimazole lozenges to help. Patient is recommended to to get blood work and return to clinic in a month for follow-up. Review of Systems Review of Systems Systems Reviewed: All systems reviewed, normal except as documented Objective/Exam Narrative Physical exam: Constitutional: AOx3, able to speak full sentences with no acute distress. Patient seen using portable O2 with 2L NC, satting 92%. HEENT: NC/AT, PERRLA, oral mucosa moist with mild thrush noticed on her lateral side of her posterior tongue CVS: RRR, S1-S2 present, no murmurs RESP: Clear to auscultation bilaterally. No wheezing or crackles appreciated. Equal air movement throughout. GI: Soft, non distended, non tender to palpation, NBS MSK: No peripheral edema, peripheral pulses present Skin: warm and dry, no rashes Neuro: prior authorization nurse II-XII grossly intact. Sensation grossly intact. Assessment & Plan Diagnosis / Problem List (1) Diarrhea: Status: Acute Assessment & Plan: Patient has been complaining of having 3-4 bowel movements that are watery in nature for the last 2 weeks. Patient states that the only change she made to her medications was decreasing her Trelegy, starting her gabapentin, only received 1 dose and continuing with azithromycin 3 times weekly. Patient also has a history of rectal prolapse, and has been unable to reach out to urology for follow-up appointment. Patient denies having any fevers, foul odor stool, or change in color of stool. Plan: Due to having low risk for C. difficile, we will hold off on ordering stool studies for now Recommended patient to try [id number] antidiarrheal such as Imodium Continue to monitor for any signs of inflammatory response such as fevers or bodyaches. (2) COPD (chronic obstructive pulmonary disease): Status: Chronic Qualifiers: COPD type: unspecified COPD Qualified Code(s): J44.9 - Chronic obstructive pulmonary disease, unspecified Assessment & Plan: Pt continues to use NC at all times. Pt uses her albuterol inhaler and Trelegy inhaler daily. Plan: -Continue to use O2 and wean as tolerated, with O2 sat goal between 88-92% -Pt to use inhalers as needed. -Pt encouraged to take deep breaths and to rinse after each use. -Continue with Roflumilast and azithromycin 3 times weekly - Patient has been unable to reach out to her pharmacy to get a request to increase her Trelegy to a higher dose, currently on 100 mcg -Patient is using a mouth wash which initially was effective in removing the thrush noticed in her oral cavity, however would like another medication - Ordered patient clotrimazole lozenges (3) Restless leg syndrome: Status: Chronic Assessment & Plan: Pt takes Pramipexole 0.5mg TID for her RLS, 0.5mg in AM and 1mg 1-2 hours prior to bedtime, however, patient states that this regimen currently is not as effect daniel anymore. Patient states that she used the gabapentin dose once, and had severe side effects including nausea/headache. Plan: Recommended patient to try lower dose of gabapentin, and also try more supportive measures including elevating her leg, using heat pads, and exercising If patient's symptoms continue to worsen or persist, will try K2 to help with her muscle cramps (4) Anxiety: Status: Acute Assessment & Plan: Pt states her anxiety has improved. Plan: Continue taking Lexapro dose 10mg and can use 0.5mg Ativan as needed Encouraged to use only as needed to avoid body dependence from medication Pt is also advised to engage in exercise and take deep breaths throughout the day, especially in periods of high anxiety Plan Plan of care discussed with Attending Dr. Cassie Rico MD, PGY-2 Additional Assessment Patient's plan and care discussed with my attending, Dr. Matthews. Nataliia Rico MD PGY-2 Advanced Care Planning Advance care planning discussed with:: patient Office Procedures [facility] Level of Care Nursing/Assessment Patient Status: Established Patient Nursing Assessment/Reassessment: Medication Reconciliation, Update PMH in EMR and Vital Signs Coordination of Care: Complex Care and Chronic Disease 1-5, Consent,records obtained, informed consent, Education Simp Pt/Fam and Staff clarify orders Established Patient Charge Established Patient Point Assignment: 85 Established Patient Point Charge: EP Level 3 (80-115)
== END 2024-11-22 16:34 | disposition home or self-care (01) ==
LOC: HODAHC 15:07
PROVIDERS: PCP Student in an Organized Health Care Education/Training Program; Referring Provider Student in an Organized Health Care Education/Training Program; Supervising Provider Internal Medicine; Visit Provider Student in an Organized Health Care Education/Training Program
DX: K52.9 Noninfective gastroenteritis and colitis, unspecified (principal); G25.81 Restless legs syndrome; B37.0 Candidal stomatitis; J44.9 Chronic obstructive pulmonary disease, unspecified; F41.9 Anxiety disorder, unspecified
CPT/HCPCS: 99213; G0463

== ENCOUNTER 2024-12-27 13:54 | Outpatient (AMB) | payer MEDICARE, SELFPAY ==
[2024-12-27 14:05] VITALS: BP 123/74; PULSE 96; RESP 17; TEMP 35.7; O2SAT 88; BMI 24.3
--- NOTE | 2024-12-27 14:05 | PD.RESCLINIC ---
Vital Signs 12/27/24 14:05 Height 1.52 m Height Method Measured Weight 56.359 kg Weight Measurement Method Standing Scale BMI 24.3 BP 123/74 Blood Pressure Source Automatic Cuff Blood Pressure Location Right Upper Arm Position Sitting Respiration 17 Pulse 96 Pulse Source Monitor Temp 96.2 F L Temp Source Temporal Artery Scan Pulse Oximetry (%) 88 L Oxygen Delivery Method Room Air Allergies/Meds Allergies & Medications Allergies cefaclor Allergy (Verified 01/12/25 16:16) Redness of Skin prednisone Adverse Reaction (Intermediate, Verified 01/12/25 16:16) AGITATED Medication Reconciliation sennosides 8.6 mg tablet (Senna Laxative) 8.6 mg PO QDAY #2 tabs 05/28/23 [Rx Confirmed 01/12/25] fluticasone fur. 100 mcg-umeclid 62.5 mcg-vilant 25 mcg inhalat.powder (Trelegy Ellipta) 1 inh inhalation QDAY 1 month #60 ea 09/06/24 [Rx Confirmed 01/12/25] roflumilast 250 mcg tablet 250 mcg PO HS #90 tabs 10/08/24 [Rx Confirmed 01/12/25] albuterol sulfate 90 mcg/actuation aerosol inhaler 2 inh inhalation Q4HR PRN Shortness Of Breath 1 month #8.5 grams 10/22/24 [Rx Confirmed 01/12/25] amoxicillin 875 mg-potassium clavulanate 125 mg tablet 1 tab PO Q12H #10 tabs 10/25/24 [Rx Confirmed 01/12/25] azithromycin 250 mg tablet 250 mg PO UD #36 tabs 11/22/24 [Rx Confirmed 01/12/25] lorazepam 0.5 mg tablet 0.5 mg PO BID PRN anxiety #60 tabs 11/22/24 [Rx Confirmed 01/12/25] clotrimazole 10 mg herbert 10 mg mucous membrane 5XD thrush #70 tabs 12/27/24 [Rx Confirmed 01/12/25] escitalopram oxalate 10 mg tablet 20 mg (2 x 10 mg) PO QDAY anxiety #90 tabs 12/27/24 [Rx Confirmed 01/12/25] ondansetron 4 mg disintegrating tablet 4 mg PO Q8H PRN nausea and vomiting #30 tabs 12/27/24 [Rx Confirmed 01/12/25] pregabalin 75 mg capsule 75 mg PO QHS #30 caps 12/27/24 [Rx Confirmed 01/12/25] MA Intake Visit Data Collection New Patient or Established: Established Patient (seen at [facility] within 3 years) Seen by Clinical Staff ONLY (RN/EUDARDO): No Reason for Visit:: F\U Pain Present Currently: No Pain scale:: 0 Pain Scale Used: Osullivan-Becker/Numerical [employer] Development Engineer Required: No PCP or OBGYN visit in last 3 months: Yes Date of Last PCP or OBGYN visit: 11/22/24 Hx Now: No Do You Feel Safe at Home: Yes Authorities Contacted: N/A Smoking Status Smoking Status: Former smoker Immunization / Flu Flu Vaccine in the Last 12 Months: No Flu Vaccine Exclusion Criteria: No Exclusion Criteria Past Medical History Past Medical History NEUROLOGIC: Negative Neurological Disorders or Seizures CARDIAC: Positive Heart Murmur; Negative Cardiac Disorders or Congestive Heart Failure RESPIRATORY: Positive Chronic Obstructive Pulmonary Disease (COPD), Asthma, Bronchitis, Cough, Sputum Production and Wheezing GASTROINTESTINAL: Positive Gastrointestinal Disorders, Gall Bladder Disease, Gastrointestinal Bleed and Gastroesophageal Reflux Disease; Negative Hepatitis GENITOURINARY: Positive Kidney Stones (FOR THIS PROC (HAD PROC 2009)); Negative Genitourinary Disorders or Renal Disease REPRODUCTIVE: Positive Breast Cancer and Previous Pregnancies MUSCULOSKELETAL: Positive Arthritis, Osteoporosis and Degenerative Joint Disease ENT: Positive Cataracts, Ear Infection and Deafness ENDOCRINE: Negative Endocrine Disorders, Diabetes Mellitus Type 1 or Diabetes Mellitus Type 2 HEMATOLOGIC: Negative Blood Disorders or Sickle Cell Disease PSYCHO/SOCIAL: Positive Depression and Anxiety OTHER HISTORY: Positive Chemotherapy (2011), Radiation Therapy (January 2023), Cancer, Breast Cancer and Cervical Cancer; Negative Hospitalization, Down Syndrome, Developmental Delay, Shingles, Falls, Blood Transfusions, Blood Transfusion Reaction, Anesthesia Reactions, Organ Transplant, Hyperbaric Therapy, MRSA, VRSA, Vancomycin-Resistant Enterococci, Chicken Pox, Measles, Mumps or Clostridium Difficile Family History FAMILY HISTORY: Positive Family Respiratory Disorders (COPD), Family Cardiac Disorders, Family Gastrointestinal Problems (Trouble going to the bathroom. Trouble holding down food.), Family Cancer and Family Surgery; Negative Family Psychiatric Problems or Family Anesthesia Reaction Surgical History SURGICAL: Positive Lumpectomy and Hysterectomy; Negative Abdominal Surgery or Organ Transplant Social History SMOKING STATUS: Smoking status: Former smoker SECOND HAND EXPOSURE: second hand exposure: Yes ALCOHOL: Alcohol Intake: Never HOUSING: Housing: House LIVES WITH: Lives With: Alone Patient Portal Questionaires PHQ-9 PHQ-2 Over the last 2 weeks, how often have you been bothered by any of the following problems? 1. Little interest or pleasure in doing things: not at all 2. Feeling down, depressed, or hopeless: not at all Total score: 0 PHQ-9 3. Trouble falling or staying asleep, or sleeping too much: Not at all 4. Feeling tired or having little energy: Not at all 5. Poor appetite or overeating: Not at all 6. Feeling bad about yourself - or that you are a failure or have let yourself or your family down: Not at all 7. Trouble concentrating on things, such as reading the newspaper or watching television: Not at all 8. Moving or speaking so slowly that other people could have noticed? - Or the opposite - being so fidgety or restless that you have been moving around a lot more than usual: not at all 9. Thoughts that you would be better off or of hurting yourself in some way: Not at all Total score: 0 If you checked off any problems, how difficult have these problems made it for you to do your work, take care of things at home, or get along with other people?: not difficult at all Source: Developed by Drs. Mati Black, Yue Jones, Rigo Oliveira and colleagues, with an educational aggie from [employer]. Depression screen completed yes Social History Living Situation History Marital Status: Unknown Housing: House Tobacco History Smoking Status: Former smoker Second Hand Smoke Exposure: Yes Alcohol History Alcohol Intake: Never Domestic Abuse History Do You Feel Safe at Home: Yes Review of Systems Report any current symptoms Only answer those that you have currently: Past Medical History Past Medical History Have you ever been diagnosed with any of the following: Neurological Problems Seizures: No Cardiology Problems Heart Murmur: Yes Congestive Heart Failure: No Respiratory Problems Chronic Obstructive Pulmonary Disease (COPD): Yes Asthma: Yes Bronchitis: Yes Hx Cough: Yes Cough: Yes Wheezing: Yes Stomache/Intestinal Problems Hepatitis: No Gall Bladder Disease: Yes Gastrointestinal Bleed: Yes Gastroesophageal Reflux Disease: Yes Genital/Urinary Problems Renal Disease: No Kidney Stones: Yes (FOR THIS PROC (HAD PROC 2009)) Reproductive Problems Breast Cancer: Yes Previous Pregnancies: Yes Musculoskeletal Problems Arthritis: Yes Osteoporosis: Yes Degenerative Joint Disease: Yes Head,Eye,Nose,Throat Problems Cataracts: Yes Chronic Ear Infections: Yes Deafness: Yes Endocrine Problems Diabetes Mellitus Type 1: No Diabetes Mellitus Type 2: No Blood Problems Sickle Cell Disease: No Psychologic Problems Depression: Yes Anxiety: Yes Other Problems Hospitalization: No Down Syndrome: No Developmental Delay: No Shingles: No Falls: No Blood Transfusions: No Blood Transfusion Reaction: No Anesthesia Reactions: No Organ Transplant: No Chemotherapy: Yes (2011) Radiation Therapy: Yes (January 2023) Hyperbaric Therapy: No MRSA: No VRSA: No Vancomycin-Resistant Enterococci: No Chicken Pox: No Measles: No Mumps: No Clostridium Difficile: No Cancer: Yes Cervical Cancer: Yes Surgical History Hysterectomy: Yes History of Present Illness HPI Narrative Ms. Hollingsworth is a 79-year-old female with past medical history of lung cancer status post completion of radiation in summer 2022, restless leg syndrome, bladder and rectal prolapse, history of multiple kidney stones and anxiety who is here for follow-up visit. Patient hasn't been able to tolerate her new medication with Gabapentin even at low dose, as patient immediately had dizziness and headaches. Patient decide to stop taking the medication and resort to taking 1-2 doses of her short dose Ativan when her RLS acts up at night. Patient wanted to try another medication, and suggested Pregabalin 75mg and can uptirate depending on symptom response and side effect profile. Patient also wanted to try the Clotrimazole lozenges again as has dysgeusia has dramatically improved. Pt states her anxiety has gotten slightly worse from her current stress levels with her difficult to treat RLS. Patient is to follow up in couple months. Review of Systems Review of Systems Systems Reviewed: All systems reviewed, normal except as documented Objective/Exam Narrative Physical exam: Constitutional: AOx3, able to speak full sentences with no acute distress. Patient seen using portable O2 with 2L NC, satting 92%. HEENT: NC/AT, PERRLA, oral mucosa moist CVS: RRR, S1-S2 present, no murmurs RESP: Clear to auscultation bilaterally. No wheezing or crackles appreciated. Equal air movement throughout. 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 Sensation grossly intact. Assessment & Plan Diagnosis / Problem List (1) COPD (chronic obstructive pulmonary disease): Status: Chronic Qualifiers: COPD type: unspecified COPD Qualified Code(s): J44.9 - Chronic obstructive pulmonary disease, unspecified Assessment & Plan: Pt continues to use NC at all times. Pt uses her albuterol inhaler and Trelegy inhaler daily. Plan: -Continue to use O2 and wean as tolerated, with O2 sat goal between 88-92% -Pt to use inhalers as needed. -Pt encouraged to take deep breaths and to rinse after each use. -Continue with Roflumilast and azithromycin 3 times weekly - Patient has been unable to reach out to her pharmacy to get a request to increase her Trelegy to a higher dose, currently on 100 mcg -Patient is using a mouth wash which initially was effective in removing the thrush noticed in her oral cavity, however would like another medication - Ordered patient clotrimazole lozenges (2) Restless leg syndrome: Status: Chronic Assessment & Plan: Pt takes Pramipexole 0.5mg TID for her RLS, 0.5mg in AM and 1mg 1-2 hours prior to bedtime, however, patient states that this regimen currently is not as effective anymore. Patient states that she used the gabapentin dose once and even at a lower dose, and had severe side effects including nausea/headache/dizziness Plan: Ordered Pregabalin 75mg HS Recommended supportive measures including elevating her leg, using heat pads, and exercising If patient's symptoms continue to worsen or persist, will try K2 to help with her muscle cramps (3) Anxiety: Status: Acute Assessment & Plan: Pt states her anxiety has gotten slightly worse from her current stress levels with her difficult to treat RLS Plan: Increased her Lexapro to 20mg HS and can use 0.5mg Ativan as needed Encouraged to use only as needed to avoid body dependence from medication Pt is also advised to engage in exercise and take deep breaths throughout the day, especially in periods of high anxiety Plan Plan of care discussed with Attending Dr. Cassie Rico MD, PGY-2 Additional Assessment Patient's plan and care discussed with my attending, Dr. Matthews. Nataliia Rico MD PGY-2 Advanced Care Planning Advance care planning discussed with:: patient Office Procedures [facility] Level of Care Nursing/Assessment Patient Status: Established Patient Nursing Assessment/Reassessment: Medication Reconciliation, Update PMH in EMR and Vital Signs Coordination of Care: Complex Care and Chronic Disease 1-5, Consent,records obtained, informed consent, Education Simp Pt/Fam, 2-3 Insurance Autorizations needed and Staff clarify orders Established Patient Charge Established Patient Point Assignment: 105 Established Patient Point Charge: EP Level 3 (80-115) TB Screening LTBI Screening: Has patient traveled, was born, or resided for at least 1 month, or frequent border crossing into a country with an elevated TB rate: No Immunosuppression, current or planned (HIV, organ transplant, treated with biologic agents, steroids, or other immunosuppression medication): No Close contact to someone with infectious TB disease during lifetime: No Homelessness or incarceration, current or past: No TB testing indicated at this time (at least 1 yes above): No
== END 2024-12-27 16:21 | disposition home or self-care (01) ==
LOC: HODAHC 13:54
PROVIDERS: Supervising Provider Internal Medicine; Visit Provider Student in an Organized Health Care Education/Training Program
DX: G25.81 Restless legs syndrome (principal); J44.9 Chronic obstructive pulmonary disease, unspecified; F41.9 Anxiety disorder, unspecified
CPT/HCPCS: 99213; G0463

== ENCOUNTER 2025-01-12 16:15 | Outpatient (AMB) | payer MEDICARE, SELFPAY ==
--- NOTE | 2025-01-12 16:16 | PD.RESCLINIC ---
Allergies/Meds Allergies & Medications Allergies cefaclor Allergy (Verified 01/12/25 16:16) Redness of Skin prednisone Adverse Reaction (Intermediate, Verified 01/12/25 16:16) AGITATED Medication Reconciliation sennosides 8.6 mg tablet (Senna Laxative) 8.6 mg PO QDAY #2 tabs 05/28/23 [Rx Confirmed 01/12/25] fluticasone fur. 100 mcg-umeclid 62.5 mcg-vilant 25 mcg inhalat.powder (Trelegy Ellipta) 1 inh inhalation QDAY 1 month #60 ea 09/06/24 [Rx Confirmed 01/12/25] roflumilast 250 mcg tablet 250 mcg PO HS #90 tabs 10/08/24 [Rx Confirmed 01/12/25] albuterol sulfate 90 mcg/actuation aerosol inhaler 2 inh inhalation Q4HR PRN Shortness Of Breath 1 month #8.5 grams 10/22/24 [Rx Confirmed 01/12/25] amoxicillin 875 mg-potassium clavulanate 125 mg tablet 1 tab PO Q12H #10 tabs 10/25/24 [Rx Confirmed 01/12/25] azithromycin 250 mg tablet 250 mg PO UD #36 tabs 11/22/24 [Rx Confirmed 01/12/25] lorazepam 0.5 mg tablet 0.5 mg PO BID PRN anxiety #60 tabs 11/22/24 [Rx Confirmed 01/12/25] clotrimazole 10 mg herbert 10 mg mucous membrane 5XD thrush #70 tabs 12/27/24 [Rx Confirmed 01/12/25] escitalopram oxalate 10 mg tablet 20 mg (2 x 10 mg) PO QDAY anxiety #90 tabs 12/27/24 [Rx Confirmed 01/12/25] ondansetron 4 mg disintegrating tablet 4 mg PO Q8H PRN nausea and vomiting #30 tabs 12/27/24 [Rx Confirmed 01/12/25] pregabalin 75 mg capsule 75 mg PO QHS #30 caps 12/27/24 [Rx Confirmed 01/12/25] MA Intake Visit Data Collection New Patient or Established: Established Patient (seen at [facility] within 3 years) Seen by Clinical Staff ONLY (RN/MA): No Pain Present Currently: No Pain scale:: 0 Pain Scale Used: Osullivan-Becker/Numerical Testing Projects Administrator Required: No PCP or OBGYN visit in last 3 months: No Hx Now: No Do You Feel Safe at Home: Yes Authorities Contacted: N/A Smoking Status Smoking Status: Former smoker For Televisit only Telemed Video/Phone Visit: Yes Verbal consent obtained for Telemed visit?: Yes Verbal Consent witness name: ida ortiz ma Telemed Video/Phone visit w/Clinical Staff: 21-30 min Immunization / Flu Flu Vaccine in the Last 12 Months: No Flu Vaccine Exclusion Criteria: No Exclusion Criteria Past Medical History Past Medical History NEUROLOGIC: Negative Neurological Disorders or Seizures CARDIAC: Positive Heart Murmur; Negative Cardiac Disorders or Congestive Heart Failure RESPIRATORY: Positive Chronic Obstructive Pulmonary Disease (COPD), Asthma, Bronchitis, Cough, Sputum Production and Wheezing GASTROINTESTINAL: Positive Gastrointestinal Disorders, Gall Bladder Disease, Gastrointestinal Bleed and Gastroesophageal Reflux Disease; Negative Hepatitis GENITOURINARY: Positive Kidney Stones (FOR THIS PROC (HAD PROC 2009)); Negative Genitourinary Disorders or Renal Disease REPRODUCTIVE: Positive Breast Cancer and Previous Pregnancies MUSCULOSKELETAL: Positive Arthritis, Osteoporosis and Degenerative Joint Disease ENT: Positive Cataracts, Ear Infection and Deafness ENDOCRINE: Negative Endocrine Disorders, Diabetes Mellitus Type 1 or Diabetes Mellitus Type 2 HEMATOLOGIC: Negative Blood Disorders or Sickle Cell Disease PSYCHO/SOCIAL: Positive Depression and Anxiety OTHER HISTORY: Positive Chemotherapy (2011), Radiation Therapy (January 2023), Cancer, Breast Cancer and Cervical Cancer; Negative Hospitalization, Down Syndrome, Developmental Delay, Shingles, Falls, Blood Transfusions, Blood Transfusion Reaction, Anesthesia Reactions, Organ Transplant, Hyperbaric Therapy, MRSA, VRSA, Vancomycin-Resistant Enterococci, Chicken Pox, Measles, Mumps or Clostridium Difficile Family History FAMILY HISTORY: Positive Family Respiratory Disorders (COPD), Family Cardiac Disorders, Family Gastrointestinal Problems (Trouble going to the bathroom. Trouble holding down food.), Family Cancer and Family Surgery; Negative Family Psychiatric Problems or Family Anesthesia Reaction Surgical History SURGICAL: Positive Lumpectomy and Hysterectomy; Negative Abdominal Surgery or Organ Transplant Social History SMOKING STATUS: Smoking status: Former smoker SECOND HAND EXPOSURE: second hand exposure: Yes ALCOHOL: Alcohol Intake: Never HOUSING: Housing: House LIVES WITH: Lives With: Alone Patient Portal Questionaires PHQ-9 PHQ-2 Over the last 2 weeks, how often have you been bothered by any of the following problems? 1. Little interest or pleasure in doing things: not at all PHQ-9 8. Moving or speaking so slowly that other people could have noticed? - Or the opposite - being so fidgety or restless that you have been moving around a lot more than usual: not at all Source: Developed by Drs. Mati Black, Yue Jones, Rigo Oliveira and colleagues, with an educational aggie from [employer]. Social History Living Situation History Housing: House Tobacco History Smoking Status: Former smoker Second Hand Smoke Exposure: Yes Alcohol History Alcohol Intake: Never Domestic Abuse History Do You Feel Safe at Home: Yes Review of Systems Report any current symptoms Only answer those that you have currently: Past Medical History Past Medical History Have you ever been diagnosed with any of the following: Neurological Problems Seizures: No Cardiology Problems Heart Murmur: Yes Congestive Heart Failure: No Respiratory Problems Chronic Obstructive Pulmonary Disease (COPD): Yes Asthma: Yes Bronchitis: Yes Hx Cough: Yes Cough: Yes Wheezing: Yes Stomache/Intestinal Problems Hepatitis: No Gall Bladder Disease: Yes Gastrointestinal Bleed: Yes Gastroesophageal Reflux Disease: Yes Genital/Urinary Problems Renal Disease: No Kidney Stones: Yes (FOR THIS PROC (HAD PROC 2009)) Reproductive Problems Breast Cancer: Yes Previous Pregnancies: Yes Musculoskeletal Problems Arthritis: Yes Osteoporosis: Yes Degenerative Joint Disease: Yes Head,Eye,Nose,Throat Problems Cataracts: Yes Chronic Ear Infections: Yes Deafness: Yes Endocrine Problems Diabetes Mellitus Type 1: No Diabetes Mellitus Type 2: No Blood Problems Sickle Cell Disease: No Psychologic Problems Depression: Yes Anxiety: Yes Other Problems Hospitalization: No Down Syndrome: No Developmental Delay: No Shingles: No Falls: No Blood Transfusions: No Blood Transfusion Reaction: No Anesthesia Reactions: No Organ Transplant: No Chemotherapy: Yes (2011) Radiation Therapy: Yes (January 2023) Hyperbaric Therapy: No MRSA: No VRSA: No Vancomycin-Resistant Enterococci: No Chicken Pox: No Measles: No Mumps: No Clostridium Difficile: No Cancer: Yes Cervical Cancer: Yes Surgical History Hysterectomy: Yes History of Present Illness HPI Narrative Ms. Hollingsworth is a 79-year-old female with past medical history of lung cancer status post completion of radiation in summer 2022, restless leg syndrome, bladder and rectal prolapse, history of multiple kidney stones and anxiety who is here for follow-up visit. Patient had an eventful couple of weeks after starting Pregabalin. The next few days after her appointment, patient's O2 saturation dropped to the 60s-70s and then realized her O2 tank wasn't plugged in all the way. In addition, she fell onto a cement floor while taking her car. During this time, whenever she would take Pregabalin in the evenings, she would feel dizzy, and she lost balance and scratched her extremtites after bumping into her wall. She went to the Urgent care on 12/31 and provider used sterile strips on her erythematous areas. The next day, her family noticed her eye was more swollen, and was incoherent at times, and taking a longer time to answer questions. Patient was rushed to the ED, and was admitted for acute blood loss anemia after being found with a Hgb of 7.1. Patient's RLS improved with daily Ativan and Ropinirole 1mg in the evening. Patient was discharged on 01/05/25 after blood transfusion. After coming home, patient later was bit by her cat, and cleaned spot immediately. Patient noted swelling up to 6 inches from her ankle, but no tender to touch and no signs of erythema or pus noted. Patient receieved her Tetanus shot while at her recent Urgent care visit. Patient was encouraged to elevate her legs to reduce her pedal edema and encourage more mobility. Patient will be prescribed Ropinirole 1mg in the evenings, and can continue to use Ativan as needed for her RLS. Patient is scheduled for a follow up appointment in a few months. Review of Systems Review of Systems Systems Reviewed: All systems reviewed, normal except as documented Objective/Exam Narrative Physical exam: Televisit Assessment & Plan Diagnosis / Problem List (1) Restless leg syndrome: Status: Chronic Assessment & Plan: Pt has taken Pramipexole 0.5mg TID, which did resolve her RLS. However, since has lost its efficacy, and as a result has tried Pregabalin and Gabapentin even at lower doses for her RLS, but had severe side effects including nausea/headache/dizziness. Only medication that seemed to help in the hospital was Ropinirole 1mg HS with Ativan PRN. Plan: Ordered Ropinirole 1mg HS Ativan 1mg PRN Recommended supportive measures including elevating her leg, using heat pads, and exercising If patient's symptoms continue to worsen or persist, will try K2 to help with her muscle cramps (2) Iron deficiency anemia: Status: Acute Assessment & Plan: Patient was recently admitted for acute blood loss anemia, and admission Hgb was 7.1, and was presenting with confusion and dizziness. S/P transfusion, patient's mentation improved. Plan: Prescribed iron supplements QOD for a month Encouraged eating iron rich foods If constipated, can hold dose her supplement with stool softeners as needed (3) COPD (chronic obstructive pulmonary disease): Status: Chronic Qualifiers: COPD type: unspecified COPD Qualified Code(s): J44.9 - Chronic obstructive pulmonary disease, unspecified Assessment & Plan: Pt continues to use NC at all times. Pt uses her albuterol inhaler and Trelegy inhaler daily. Plan: -Continue to use O2 and wean as tolerated, with O2 sat goal between 88-92% -Pt to use inhalers as needed. -Pt encouraged to take deep breaths and to rinse after each use. -Continue with Roflumilast and azithromycin 3 times weekly -Patient to continue with her Trelegy at 100 mcg (4) Anxiety: Status: Acute Assessment & Plan: Pt states her anxiety has gotten slightly worse from her current stress levels with her difficult to treat RLS Plan: Continue Lexapro to 20mg HS and can use 0.5mg Ativan as needed Encouraged to use only as needed to avoid body dependence from medication Pt is also advised to engage in exercise and take deep breaths throughout the day, especially in periods of high anxiety Plan Plan of care discussed with Attending Dr. Cassie Rico MD, PGY-3 Advanced Care Planning Advance care planning discussed with:: patient Office Procedures [facility] Level of Care Nursing/Assessment Patient Status: Established Patient Nursing Assessment/Reassessment: Medication Reconciliation and Update PMH in EMR Coordination of Care: Complex Care and Chronic Disease 1-5, Consent,records obtained, informed consent, Education Simp Pt/Fam and Staff clarify orders Established Patient Charge Established Patient Point Assignment: 70 Telehealth Telemed Phone/Video with patient at home & Dr,PA,[employer]: Yes
== END 2025-01-12 16:40 | disposition home or self-care (01) ==
LOC: HODAHC 16:15
PROVIDERS: PCP Student in an Organized Health Care Education/Training Program; Referring Provider Student in an Organized Health Care Education/Training Program; Supervising Provider Internal Medicine; Visit Provider Student in an Organized Health Care Education/Training Program
DX: G25.81 Restless legs syndrome (principal); D50.9 Iron deficiency anemia, unspecified; J44.9 Chronic obstructive pulmonary disease, unspecified; F41.9 Anxiety disorder, unspecified
CPT/HCPCS: 99212; G0463

== ENCOUNTER 2025-05-06 13:23 | Outpatient (AMB) | payer MEDICARE, SELFPAY ==
[2025-05-06 13:38] VITALS: BP 130/81; PULSE 92; RESP 18; TEMP 35.7; O2SAT 89; BMI 25.6
--- NOTE | 2025-05-06 13:38 | PD.RESCLINIC ---
Vital Signs 05/06/25 13:38 Height 1.52 m Height Method Stated Weight 59.194 kg Weight Measurement Method Standing Scale BMI 25.6 BP 130/81 Blood Pressure Source Automatic Cuff Blood Pressure Location Right Upper Arm Position Sitting Respiration 18 Pulse 92 Pulse Source Monitor Temp 96.2 F L Temp Source Temporal Artery Scan Pulse Oximetry (%) 89 L Oxygen Delivery Method Room Air Allergies/Meds Allergies & Medications Allergies cefaclor Allergy (Verified 05/06/25 13:39) Redness of Skin prednisone Adverse Reaction (Intermediate, Verified 05/06/25 13:39) AGITATED Medication Reconciliation sennosides 8.6 mg tablet (Senna Laxative) 8.6 mg PO QDAY #2 tabs 05/28/23 [Rx Confirmed 05/06/25] fluticasone fur. 100 mcg-umeclid 62.5 mcg-vilant 25 mcg inhalat.powder (Trelegy Ellipta) 1 inh inhalation QDAY 1 month #60 ea 09/06/24 [Rx Confirmed 05/06/25] roflumilast 250 mcg tablet 250 mcg PO HS #90 tabs 10/08/24 [Rx Confirmed 05/06/25] albuterol sulfate 90 mcg/actuation aerosol inhaler 2 inh inhalation Q4HR PRN Shortness Of Breath 1 month #8.5 grams 10/22/24 [Rx Confirmed 05/06/25] amoxicillin 875 mg-potassium clavulanate 125 mg tablet 1 tab PO Q12H #10 tabs 10/25/24 [Rx Confirmed 05/06/25] azithromycin 250 mg tablet 250 mg PO UD #36 tabs 11/22/24 [Rx Confirmed 05/06/25] lorazepam 0.5 mg tablet 0.5 mg PO BID PRN anxiety #60 tabs 11/22/24 [Rx Confirmed 05/06/25] clotrimazole 10 mg herbert 10 mg mucous membrane 5XD thrush #70 tabs 12/27/24 [Rx Confirmed 05/06/25] escitalopram oxalate 10 mg tablet 20 mg (2 x 10 mg) PO QDAY anxiety #90 tabs 12/27/24 [Rx Confirmed 05/06/25] ondansetron 4 mg disintegrating tablet 4 mg PO Q8H PRN nausea and vomiting #30 tabs 12/27/24 [Rx Confirmed 05/06/25] pregabalin 75 mg capsule 75 mg PO QHS #30 caps 12/27/24 [Rx Confirmed 05/06/25] ropinirole 1 mg tablet 1 mg PO QHS #90 tabs 05/05/25 [Rx Confirmed 05/06/25] ferrous sulfate 137 mg (45 mg iron) tablet,extended release (Slow Fe) 137 mg PO QDAY #60 tabs 05/06/25 [Rx] EDUARDO Intake Visit Data Collection New Patient or Established: Established Patient (seen at [facility] within 3 years) Seen by Clinical Staff ONLY (RN/MA): No Pain Present Currently: No Pain scale:: 0 Pain Scale Used: Osullivan-Becker/Numerical PCP or OBGYN visit in last 3 months: Yes Hx Now: No Do You Feel Safe at Home: Yes Authorities Contacted: N/A Smoking Status Smoking Status: Former smoker Immunization / Flu Flu Vaccine in the Last 12 Months: No Flu Vaccine Exclusion Criteria: No Exclusion Criteria Past Medical History Past Medical History NEUROLOGIC: Negative Neurological Disorders or Seizures CARDIAC: Positive Heart Murmur; Negative Cardiac Disorders or Congestive Heart Failure RESPIRATORY: Positive Chronic Obstructive Pulmonary Disease (COPD), Asthma, Bronchitis, Cough, Sputum Production and Wheezing GASTROINTESTINAL: Positive Gastrointestinal Disorders, Gall Bladder Disease, Gastrointestinal Bleed and Gastroesophageal Reflux Disease; Negative Hepatitis GENITOURINARY: Positive Kidney Stones (FOR THIS PROC (HAD PROC 2009)); Negative Genitourinary Disorders or Renal Disease REPRODUCTIVE: Positive Breast Cancer and Previous Pregnancies MUSCULOSKELETAL: Positive Arthritis, Osteoporosis and Degenerative Joint Disease ENT: Positive Cataracts, Ear Infection and Deafness ENDOCRINE: Negative Endocrine Disorders, Diabetes Mellitus Type 1 or Diabetes Mellitus Type 2 HEMATOLOGIC: Negative Blood Disorders or Sickle Cell Disease PSYCHO/SOCIAL: Positive Depression and Anxiety OTHER HISTORY: Positive Chemotherapy (2011), Radiation Therapy (January 2023), Cancer, Breast Cancer and Cervical Cancer; Negative Hospitalization, Down Syndrome, Developmental Delay, Shingles, Falls, Blood Transfusions, Blood Transfusion Reaction, Anesthesia Reactions, Organ Transplant, Hyperbaric Therapy, MRSA, VRSA, Vancomycin-Resistant Enterococci, Chicken Pox, Measles, Mumps or Clostridium Difficile Family History FAMILY HISTORY: Positive Family Respiratory Disorders (COPD), Family Cardiac Disorders, Family Gastrointestinal Problems (Trouble going to the bathroom. Trouble holding down food.), Family Cancer and Family Surgery; Negative Family Psychiatric Problems or Family Anesthesia Reaction Surgical History SURGICAL: Positive Lumpectomy and Hysterectomy; Negative Abdominal Surgery or Organ Transplant Social History SMOKING STATUS: Smoking status: Former smoker SECOND HAND EXPOSURE: second hand exposure: Yes ALCOHOL: Alcohol Intake: Never HOUSING: Housing: House LIVES WITH: Lives With: Alone Patient Portal Questionaires PHQ-9 PHQ-2 Over the last 2 weeks, how often have you been bothered by any of the following problems? 1. Little interest or pleasure in doing things: not at all PHQ-9 8. Moving or speaking so slowly that other people could have noticed? - Or the opposite - being so fidgety or restless that you have been moving around a lot more than usual: not at all Source: Developed by Drs. Mati Black, Yue Jones, Rigo Oliveira and colleagues, with an educational aggie from [employer]. Social History Living Situation History Housing: House Tobacco History Smoking Status: Former smoker Second Hand Smoke Exposure: Yes Alcohol History Alcohol Intake: Never Domestic Abuse History Do You Feel Safe at Home: Yes Review of Systems Report any current symptoms Only answer those that you have currently: Past Medical History Past Medical History Have you ever been diagnosed with any of the following: Neurological Problems Seizures: No Cardiology Problems Heart Murmur: Yes Congestive Heart Failure: No Respiratory Problems Chronic Obstructive Pulmonary Disease (COPD): Yes Asthma: Yes Bronchitis: Yes Hx Cough: Yes Cough: Yes Wheezing: Yes Stomache/Intestinal Problems Hepatitis: No Gall Bladder Disease: Yes Gastrointestinal Bleed: Yes Gastroesophageal Reflux Disease: Yes Genital/Urinary Problems Renal Disease: No Kidney Stones: Yes (FOR THIS PROC (HAD PROC 2009)) Reproductive Problems Breast Cancer: Yes Previous Pregnancies: Yes Musculoskeletal Problems Arthritis: Yes Osteoporosis: Yes Degenerative Joint Disease: Yes Head,Eye,Nose,Throat Problems Cataracts: Yes Chronic Ear Infections: Yes Deafness: Yes Endocrine Problems Diabetes Mellitus Type 1: No Diabetes Mellitus Type 2: No Blood Problems Sickle Cell Disease: No Psychologic Problems Depression: Yes Anxiety: Yes Other Problems Hospitalization: No Down Syndrome: No Developmental Delay: No Shingles: No Falls: No Blood Transfusions: No Blood Transfusion Reaction: No Anesthesia Reactions: No Organ Transplant: No Chemotherapy: Yes (2011) Radiation Therapy: Yes (January 2023) Hyperbaric Therapy: No MRSA: No VRSA: No Vancomycin-Resistant Enterococci: No Chicken Pox: No Measles: No Mumps: No Clostridium Difficile: No Cancer: Yes Cervical Cancer: Yes Surgical History Hysterectomy: Yes History of Present Illness HPI Narrative Ms. Hollingsworth is a 79-year-old female with past medical history of lung cancer status post completion of radiation in summer 2022, restless leg syndrome, bladder and rectal prolapse, history of multiple kidney stones and anxiety who is here for 3 month follow-up visit. Patient states that her restless leg syndrome has been worse over the last month despite being on her Ropinirole 1mg at night. Patient states that she has been trying to take the medication earlier in the day but it doesn't help as much, and only make her feel drowsier longer. Patient states she stopped taking her iron after one month of being prescribed after her last hospitalization in January. Will have patient start taking slow-release iron d/t her hx of constipation daily and have her split her Ropinirole in 1/2 and take it once in the morning and evening. Patient also concerned that her Hgb and electrolytes might be low which could be playing a role in her restless leg syndrome acting up and her generalized weakness. Will have patient complete CBC/CMP/iron panel/ferritin and see another resident physician next Friday to review lab results. Patient also requested a refill of her Duoneb treatment via [facility], and awaiting fax from [facility] pharmacy. Review of Systems Review of Systems Systems Reviewed: All systems reviewed, normal except as documented Objective/Exam Narrative Physical exam: Constitutional: AOx3, able to speak full sentences with no acute distress. Patient seen using portable O2 with 2L NC, satting 92%. Appears slightly diaphoretic. HEENT: NC/AT, PERRLA, oral mucosa moist CVS: RRR, S1-S2 present, no murmurs RESP: Clear to auscultation bilaterally. No wheezing or crackles appreciated. Equal air movement throughout. GI: Soft, non distended, non tender to palpation, NBS MSK: No peripheral edema, peripheral pulses present Skin: warm and dry, no rashes Neuro: title coordinator II-XII grossly intact. Sensation grossly intact. Assessment & Plan Diagnosis / Problem List (1) Iron deficiency anemia: Status: Acute Assessment & Plan: Patient has been feeling very weak and drowsy, despite being on Ropinirole 1mg HS since January. Patient stopped taking Iron supplements after one month. Patient's last hospitalization revealed patient had severe RIGOBERTO back in January and required blood transfusion, since her Hgb was as low as 7.1. Plan: Ordered CBC/CMP, Iron panel, and Ferritin Ordered slow release Fe to take daily F/u lab results on 05/11/25 with [facility] (2) Restless leg syndrome: Status: Chronic Assessment & Plan: Pt has taken Pramipexole 0.5mg TID, which did resolve her RLS. However, since has lost its efficacy, and as a result has tried Pregabalin and Gabapentin even at lower doses for her RLS, but had severe side effects including nausea/headache/dizziness. Only medication that seemed to help in the hospital was Ropinirole 1mg HS with Ativan PRN. Patient states medication was working well until about a month ago. Plan: Continue with Ropinirole but split dose and take once in morning and evening to see if drowsiness improves Ativan 1mg PRN Recommended supportive measures including elevating her leg, using heat pads, and exercising If patient's symptoms continue to worsen or persist, will try K2 to help with her muscle cramps (3) COPD (chronic obstructive pulmonary disease): Status: Chronic Qualifiers: COPD type: unspecified COPD Qualified Code(s): J44.9 - Chronic obstructive pulmonary disease, unspecified Assessment & Plan: Pt continues to use NC at all times. Pt uses her albuterol inhaler and Trelegy inhaler daily. Plan: -Continue to use O2 and wean as tolerated, with O2 sat goal between 88-92% -Pt to use inhalers as needed. -Pt encouraged to take deep breaths and to rinse after each use. -Continue with Roflumilast and azithromycin 3 times weekly -Patient to continue with her Trelegy at 100 mcg -Awaiting fax from [facility] pharmacy to send her Duoneb treatment she uses in her nebulizer (4) Anxiety: Status: Acute Assessment & Plan: Pt states her anxiety is stable, and is just concerned that her RLS is not in control again Plan: Continue Lexapro to 20mg HS and can use 0.5mg Ativan as needed Encouraged to use only as needed to avoid body dependence from medication Pt is also advised to engage in exercise and take deep breaths throughout the day, especially in periods of high anxiety (5) Colonic polyp: Status: Acute Assessment & Plan: Patient was found to have a long, flattened polyp in the ascending, proximal colon. Per inpatient GI at [facility], patient would need to be referred to a tertiary center for EMR resection of polyp; another polyp, a large 1cm was resected from the descending colon and was found to be non-malignant in pathology At this time, denies any bloody diarrhea or stools. Plan: Patient is scheduled for an appointment at [facility] on June 14, 2025 Will continue to monitor Plan Plan of care discussed with Attending Dr. Tigist Rico MD, PGY-3 Orders: Orders CBC Auto Diff Post-Transfusion Today D50.9 - Iron deficiency anemia, unspecified Comprehensive Metabolic Panel Today R53.1 - Weakness Iron Panel Today D50.9 - Iron deficiency anemia, unspecified Ferritin Today D50.9 - Iron deficiency anemia, unspecified Additional Assessment Attending note: I, Marco Matthews MD, attest that I was physically present for the mackey portions of the service completed via telehealth, and I reviewed and discussed the case with the resident and agree with the resident's plans of care as documented above. Marco Matthews MD Advanced Care Planning Advance care planning discussed with:: patient and child (son) Office Procedures [facility] Level of Care Nursing/Assessment Patient Status: Established Patient Nursing Assessment/Reassessment: Medication Reconciliation, Update PMH in EMR and Vital Signs Coordination of Care: Complex Care and Chronic Disease 1-5, Complex Care/Chronic Disease 5 or more, Education Complex Pt/Fam, Consent,records obtained, informed consent, Lab and Imaging orders, Results/Orders obtained and Staff clarify orders Established Patient Charge Established Patient Point Assignment: 145 Established Patient Point Charge: EP Level 4 (120-155)
== END 2025-05-06 14:32 | disposition home or self-care (01) ==
LOC: HODAHC 13:23
PROVIDERS: PCP Student in an Organized Health Care Education/Training Program; Referring Provider Student in an Organized Health Care Education/Training Program; Supervising Provider Student in an Organized Health Care Education/Training Program; Visit Provider Student in an Organized Health Care Education/Training Program
DX: D50.9 Iron deficiency anemia, unspecified (principal); G25.81 Restless legs syndrome; J44.9 Chronic obstructive pulmonary disease, unspecified; F41.9 Anxiety disorder, unspecified; K63.5 Polyp of colon
CPT/HCPCS: 99214; G0463

== ENCOUNTER → 2025-05-09 | Outpatient (CLI) | payer MEDICARE, SELFPAY ==
[2025-05-09 10:29] LABS: Basophils # (Auto) 0.1 Thou/mm3 (0.0-0.2); Basophils % (Auto) 1 % (0-2.5); Eosinophils # (Auto) 0.2 Thou/mm3 (0.0-0.5); Eosinophils % (Auto) 3 % (0-10); Hematocrit 36.8 % (36.0-46.0); Hemoglobin 11.6 g/dL (12.0-16.0); Immature Granulocytes Auto 0.01 Thou/mm3 (0.00-0.00); Lymphocytes # (Auto) 1.1 Thou/mm3 (1.0-4.8); Lymphocytes % (Auto) 18 % (10-50); Mean Corpuscular HGB Conc 31.5 g/dl (31.0-37.0); Mean Corpuscular Hemoglobin 27.4 pg (25.0-35.0); Mean Corpuscular Volume 87 fL (80-100); Monocytes # (Auto) 0.6 Thou/mm3 (0.0-0.8); Monocytes % (Auto) 10 % (0-12); Neutrophils # (Auto) 4.2 Thou/mm3 (1.8-7.7); Neutrophils % (Auto) 69 % (37-80); Nucleated Red Blood Cell # 0.00 Thou/mm3 (0.00-0.00); Nucleated Red Blood Cell % 0 /100 WBC (0); Platelet Count 140 Thou/mm3 (140-440); RDW Standard Deviation 47.3 fL (36.4-46.3); Red Blood Count 4.24 Miln/mm3 (4.00-5.20); White Blood Count 6.0 Thou/mm3 (3.6-11.0)
[2025-05-09 10:47] LABS: Ferritin 9 ng/mL (7.3-270.7); Iron 34 mcg/dL (50-170); Percent Iron Saturation 8 % (20-55); Total Iron Binding Capacity 423 mcg/dL (250-425); Unsaturated Iron Binding 389 (225-295)
[2025-05-09 10:57] LABS: Alanine Aminotransferase < 7 U/L (10-49); Albumin, Serum 4.6 gm/dL (3.4-4.8); Albumin/Globulin Ratio 1.8 (1.2-2.2); Alkaline Phosphatase 91 U/L (46-116); Anion Gap 10 (7-16); Aspartate Amino Transferase 18 U/L (0-34); BUN/Creatinine Ratio 22 Ratio (12-20); Bilirubin,Total 0.4 mg/dL (0.3-1.2); Blood Urea Nitrogen 13 mg/dL (9-23); Calcium 9.4 mg/dL (8.3-10.6); Calcium (Corrected) 9.4 mg/dL (8.5-10.1); Carbon Dioxide 29.4 mMol/L (20.0-31.0); Chloride 102 mMol/L (98-107); Creatinine (Component) 0.6 mg/dL (0.6-1.3); Globulin 2.5 gm/dL (2.3-3.5); Glucose 90 mg/dL (74-106); Osmolality,Calculated 281 (275-295); Potassium 4.3 mMol/L (3.4-5.1); Sodium 141 mMol/L (136-145); Total Protein 7.1 gm/dL (5.7-8.2); eGFR > 60 See Note
== END | disposition home or self-care (01) ==
LOC: COPL 09:37
PROVIDERS: PCP Student in an Organized Health Care Education/Training Program; Referring Provider Student in an Organized Health Care Education/Training Program; Visit Provider Student in an Organized Health Care Education/Training Program
DX: D50.9 Iron deficiency anemia, unspecified (principal); R53.1 Weakness
CPT/HCPCS: 36415; 80053; 82728; 83540; 83550; 85025

== ENCOUNTER 2025-05-11 13:52 | Outpatient (AMB) | payer MEDICARE, SELFPAY ==
--- NOTE | 2025-05-11 13:57 | PD.RESCLINIC ---
Allergies/Meds Allergies & Medications Allergies nirmatrelvir (From Paxlovid) Allergy (Severe, Verified 05/11/25 13:57) Abdominal Pain ritonavir (From Paxlovid) Allergy (Severe, Verified 05/11/25 13:57) Abdominal Pain cefaclor Allergy (Verified 05/11/25 13:57) Redness of Skin prednisone Adverse Reaction (Intermediate, Verified 05/11/25 13:57) AGITATED Medication Reconciliation sennosides 8.6 mg tablet (Senna Laxative) 8.6 mg PO QDAY #2 tabs 05/28/23 [Rx Confirmed 05/11/25] fluticasone fur. 100 mcg-umeclid 62.5 mcg-vilant 25 mcg inhalat.powder (Trelegy Ellipta) 1 inh inhalation QDAY 1 month #60 ea 09/06/24 [Rx Confirmed 05/11/25] roflumilast 250 mcg tablet 250 mcg PO HS #90 tabs 10/08/24 [Rx Confirmed 05/11/25] albuterol sulfate 90 mcg/actuation aerosol inhaler 2 inh inhalation Q4HR PRN Shortness Of Breath 1 month #8.5 grams 10/22/24 [Rx Confirmed 05/11/25] amoxicillin 875 mg-potassium clavulanate 125 mg tablet 1 tab PO Q12H #10 tabs 10/25/24 [Rx Confirmed 05/11/25] escitalopram oxalate 10 mg tablet 20 mg PO QDAY anxiety 10/28/24 [History Confirmed 05/11/25] fluticasone fur. 200 mcg-umeclid 62.5 mcg-vilant 25 mcg inhalat.powder (Trelegy Ellipta) 1 inh inhalation Q24H 10/28/24 [History Confirmed 05/11/25] azithromycin 250 mg tablet 250 mg PO UD #36 tabs 11/22/24 [Rx Confirmed 05/11/25] lorazepam 0.5 mg tablet 0.5 mg PO BID PRN anxiety #60 tabs 11/22/24 [Rx Confirmed 05/11/25] pramipexole 0.5 mg tablet 0.5 mg PO BID restless leg #30 tabs 12/13/24 [Rx Confirmed 05/11/25] Held on 01/05/25. Instructions: Resume on 01/14/25. Please hold pramipexole until you see your primary care provider clotrimazole 10 mg herbert 10 mg mucous membrane 5XD thrush #70 tabs 12/27/24 [Rx Confirmed 05/11/25] escitalopram oxalate 10 mg tablet 20 mg (2 x 10 mg) PO QDAY anxiety #90 tabs 12/27/24 [Rx Confirmed 05/11/25] ondansetron 4 mg disintegrating tablet 4 mg PO Q8H PRN nausea and vomiting #30 tabs 12/27/24 [Rx Confirmed 05/11/25] pregabalin 75 mg capsule 75 mg PO QHS #30 caps 12/27/24 [Rx Confirmed 05/11/25] ondansetron HCl 4 mg tablet 4 mg PO PRN nausea 01/02/25 [History Confirmed 05/11/25] ferrous fumarate 325 mg (106 mg iron) tablet 325 mg PO Q OTHER DAY #30 tabs 01/06/25 [Rx Confirmed 05/11/25] lorazepam 0.5 mg tablet 1 mg (2 x 0.5 mg) PO Q12H PRN anxiety #120 tabs 01/06/25 [Rx Confirmed 05/11/25] roflumilast 250 mcg tablet 250 mcg PO HS #30 tabs 01/17/25 [Rx Confirmed 05/11/25] albuterol sulfate 90 mcg/actuation aerosol inhaler 2 inh inhalation Q4H PRN copd #8.5 grams 02/01/25 [Rx Confirmed 05/11/25] ropinirole 1 mg tablet 1 mg PO QHS #7 tabs 04/29/25 [Rx Confirmed 05/11/25] ferrous sulfate 137 mg (45 mg iron) tablet,extended release (Slow Fe) 137 mg PO QDAY #60 tabs 05/11/25 [Rx] ropinirole 1 mg tablet 1 mg PO QHS #90 tabs 05/11/25 [Rx] MA Intake Visit Data Collection New Patient or Established: Established Patient (seen at [facility] within 3 years) Seen by Clinical Staff ONLY (RN/EDUARDO): No PCP or OBGYN visit in last 3 months: Yes Do You Feel Safe at Home: Yes Authorities Contacted: N/A Smoking Status Smoking Status: Former smoker For Televisit only Telemed Video/Phone Visit: Yes Verbal consent obtained for Telemed visit?: Yes Telemed Video/Phone visit w/Clinical Staff: 21-30 min Immunization / Flu Flu Vaccine in the Last 12 Months: No Flu Vaccine Exclusion Criteria: No Exclusion Criteria Past Medical History Past Medical History NEUROLOGIC: Negative Neurological Disorders or Seizures CARDIAC: Positive Heart Murmur; Negative Cardiac Disorders or Congestive Heart Failure RESPIRATORY: Positive Chronic Obstructive Pulmonary Disease (COPD), Asthma, Bronchitis, Cough, Sputum Production and Wheezing GASTROINTESTINAL: Positive Gastrointestinal Disorders, Gall Bladder Disease, Gastrointestinal Bleed and Gastroesophageal Reflux Disease; Negative Hepatitis GENITOURINARY: Positive Kidney Stones (FOR THIS PROC (HAD PROC 2009)); Negative Genitourinary Disorders or Renal Disease REPRODUCTIVE: Positive Breast Cancer and Previous Pregnancies MUSCULOSKELETAL: Positive Arthritis, Osteoporosis and Degenerative Joint Disease ENT: Positive Cataracts, Ear Infection and Deafness ENDOCRINE: Negative Endocrine Disorders, Diabetes Mellitus Type 1 or Diabetes Mellitus Type 2 HEMATOLOGIC: Positive Anemia (iron deffiency); Negative Blood Disorders or Sickle Cell Disease PSYCHO/SOCIAL: Positive Depression and Anxiety OTHER HISTORY: Positive Chemotherapy (2011), Radiation Therapy (January 2023), Cancer, Breast Cancer, Cervical Cancer and Lung Cancer; Negative Hospitalization, Down Syndrome, Developmental Delay, Shingles, Falls, Blood Transfusions, Blood Transfusion Reaction, Anesthesia Reactions, Organ Transplant, Hyperbaric Therapy, MRSA, VRSA, Vancomycin-Resistant Enterococci, Chicken Pox, Measles, Mumps or Clostridium Difficile Family History FAMILY HISTORY: Positive Family Respiratory Disorders (COPD), Family Cardiac Disorders, Family Gastrointestinal Problems (Trouble going to the bathroom. Trouble holding down food.), Family Cancer and Family Surgery; Negative Family Psychiatric Problems or Family Anesthesia Reaction Surgical History SURGICAL: Positive Lumpectomy and Hysterectomy; Negative Abdominal Surgery or Organ Transplant Social History SMOKING STATUS: Smoking status: Former smoker SECOND HAND EXPOSURE: second hand exposure: Yes ALCOHOL: Alcohol Intake: Never HOUSING: Housing: House LIVES WITH: Lives With: Alone Patient Portal Questionaires PHQ-9 PHQ-2 Over the last 2 weeks, how often have you been bothered by any of the following problems? 1. Little interest or pleasure in doing things: not at all PHQ-9 8. Moving or speaking so slowly that other people could have noticed? - Or the opposite - being so fidgety or restless that you have been moving around a lot more than usual: not at all Source: Developed by Drs. Mati Black, Yue Rigo Briscoe and colleagues, with an educational aggie from [employer]. Social History Living Situation History Housing: House Housing Other:: Pt lives alone Tobacco History Smoking Status: Former smoker Second Hand Smoke Exposure: Yes Alcohol History Alcohol Intake: Never Domestic Abuse History Do You Feel Safe at Home: Yes Review of Systems Report any current symptoms Only answer those that you have currently: Past Medical History Past Medical History Have you ever been diagnosed with any of the following: Neurological Problems Seizures: No Cardiology Problems Heart Murmur: Yes Congestive Heart Failure: No Respiratory Problems Chronic Obstructive Pulmonary Disease (COPD): Yes Asthma: Yes Bronchitis: Yes Hx Cough: Yes Cough: Yes Wheezing: Yes Stomache/Intestinal Problems Hepatitis: No Gall Bladder Disease: Yes Gastrointestinal Bleed: Yes Gastroesophageal Reflux Disease: Yes Genital/Urinary Problems Renal Disease: No Kidney Stones: Yes (FOR THIS PROC (HAD PROC 2009)) Reproductive Problems Breast Cancer: Yes Previous Pregnancies: Yes Musculoskeletal Problems Arthritis: Yes Osteoporosis: Yes Degenerative Joint Disease: Yes Head,Eye,Nose,Throat Problems Cataracts: Yes Chronic Ear Infections: Yes Deafness: Yes Endocrine Problems Diabetes Mellitus Type 1: No Diabetes Mellitus Type 2: No Blood Problems Anemia: Yes (iron deffiency) Sickle Cell Disease: No Psychologic Problems Depression: Yes Anxiety: Yes Other Problems Hospitalization: No Down Syndrome: No Developmental Delay: No Shingles: No Falls: No Blood Transfusions: No Blood Transfusion Reaction: No Anesthesia Reactions: No Organ Transplant: No Chemotherapy: Yes (2011) Radiation Therapy: Yes (January 2023) Hyperbaric Therapy: No MRSA: No VRSA: No Vancomycin-Resistant Enterococci: No Chicken Pox: No Measles: No Mumps: No Clostridium Difficile: No Cancer: Yes Cervical Cancer: Yes Lung Cancer: Yes Surgical History Hysterectomy: Yes History of Present Illness HPI Narrative Ms. Hollingsworth is a 79-year-old female with past medical history of lung cancer status post completion of radiation in summer 2022, restless leg syndrome, bladder and rectal prolapse, history of multiple kidney stones and anxiety who is scheduled for televisit for labs follow up. Telephone visit was conducted with the patient today. Patient reports her restless leg syndrome is not well-controlled and she continues to experience a lot of symptoms. She tried to take ropinirole in the morning but it makes her drowsy. Will try to change her ropinirole to 1.5 mg every evening and no medication in the morning and will follow-up in 1 week. Her labs were explained to her over the phone, patient was encouraged to continue taking iron which she self discontinued recently with no clear reason. Ropinirole and iron extended release were refilled. Her DuoNeb breathing treatment is pending with [facility]. Review of Systems Review of Systems Systems Reviewed: All systems reviewed, normal except as documented Objective/Exam Narrative Physical exam: telephone visit Assessment & Plan Diagnosis / Problem List (1) Iron deficiency anemia: Status: Acute Assessment & Plan: Patient self discontinued her iron supplements. Her labs were discussed with her today and she was encouraged to resume taking iron as her stored iron remains low and her hemoglobin got better after she initiated iron supplement. Plan: Continue slow release Fe to take daily. (2) Restless leg syndrome: Status: Chronic Assessment & Plan: Patient was not able to tolerate ropinirole in the morning and reports her restless leg syndrome continues to be not controlled. Plan: Will increase ropinirole to 1.5 mg every night and will follow-up with the patient in 1 week over the phone. (3) COPD (chronic obstructive pulmonary disease): Status: Chronic Qualifiers: COPD type: unspecified COPD Qualified Code(s): J44.9 - Chronic obstructive pulmonary disease, unspecified Assessment & Plan: Pt continues to use NC at all times. Pt uses her albuterol inhaler and Trelegy inhaler daily. Plan: -Continue to use O2 and wean as tolerated, with O2 sat goal between 88-92% -Pt to use inhalers as needed. -Pt encouraged to take deep breaths and to rinse after each use. -Continue with Roflumilast and azithromycin 3 times weekly -Patient to continue with her Trelegy at 100 mcg -Awaiting fax from [facility] pharmacy to send her Duoneb treatment she uses in her nebulizer, referral was signed and sent today. (4) Anxiety: Status: Acute Assessment & Plan: Pt states her anxiety is stable, and is just concerned that her RLS is not in control again Plan: Continue Lexapro to 20mg HS and can use 0.5mg Ativan as needed Encouraged to use only as needed to avoid body dependence from medication Pt is also advised to engage in exercise and take deep breaths throughout the day, especially in periods of high anxiety (5) Colonic polyp: Status: Acute Assessment & Plan: Patient was found to have a long, flattened polyp in the ascending, proximal colon. Per inpatient GI at [facility], patient would need to be referred to a tertiary center for EMR resection of polyp; another polyp, a large 1cm was resected from the descending colon and was found to be non-malignant in pathology At this time, denies any bloody diarrhea or stools. Plan: Patient is scheduled for an appointment at [facility] on June 14, 2025 Will continue to monitor Plan Plan of care discussed with Attending Dr. Tigist Black MD, PGY-3 Advanced Care Planning Advance care planning discussed with:: patient Office Procedures [facility] Level of Care Nursing/Assessment Patient Status: Established Patient Telehealth Telemed Phone/Video with patient at home & GUILLERMINA Bueno,TRAVELING CONSTRUCTION SUPERINTENDENT: No Telemed Phone/Video with patient in Clinic w/HEIDI Bueno,PA outside Clinic: No
== END 2025-05-11 15:16 | disposition home or self-care (01) ==
LOC: HODAHC 13:52
PROVIDERS: PCP Student in an Organized Health Care Education/Training Program; Referring Provider Student in an Organized Health Care Education/Training Program; Supervising Provider Internal Medicine; Visit Provider Student in an Organized Health Care Education/Training Program
DX: G25.81 Restless legs syndrome (principal); D50.9 Iron deficiency anemia, unspecified; J44.9 Chronic obstructive pulmonary disease, unspecified; F41.9 Anxiety disorder, unspecified; K63.5 Polyp of colon
CPT/HCPCS: 99213; G0463

== ENCOUNTER 2025-05-18 14:35 | Outpatient (AMB) | payer MEDICARE, SELFPAY ==
[2025-05-18 14:56] VITALS: BP 151/81; PULSE 73; RESP 19; TEMP 35.6; O2SAT 92; BMI 25.5
--- NOTE | 2025-05-18 14:56 | ACNOTE_ITS ---
Vital Signs 05/18/25 14:56 Height 1.52 m Height Method Stated Weight 59.024 kg Weight Measurement Method Standing Scale BMI 25.5 BP 151/81 H Blood Pressure Source Automatic Cuff Blood Pressure Location Right Upper Arm Position Sitting Respiration 19 Pulse 73 Pulse Source Monitor Temp 96.1 F L Temp Source Temporal Artery Scan Pulse Oximetry (%) 92 L Oxygen Delivery Method Nasal Cannula Allergies/Meds Allergies & Medications Allergies nirmatrelvir (From Paxlovid) Allergy (Severe, Verified 05/11/25 13:57) Abdominal Pain ritonavir (From Paxlovid) Allergy (Severe, Verified 05/11/25 13:57) Abdominal Pain cefaclor Allergy (Verified 05/11/25 13:57) Redness of Skin prednisone Adverse Reaction (Intermediate, Verified 05/11/25 13:57) AGITATED Medication Reconciliation sennosides 8.6 mg tablet (Senna Laxative) 8.6 mg PO QDAY #2 tabs 05/28/23 [Rx Confirmed 05/18/25] fluticasone fur. 100 mcg-umeclid 62.5 mcg-vilant 25 mcg inhalat.powder (Trelegy Ellipta) 1 inh inhalation QDAY 1 month #60 ea 09/06/24 [Rx Confirmed 05/18/25] albuterol sulfate 90 mcg/actuation aerosol inhaler 2 inh inhalation Q4HR PRN Shortness Of Breath 1 month #8.5 grams 10/22/24 [Rx Confirmed 05/18/25] fluticasone fur. 200 mcg-umeclid 62.5 mcg-vilant 25 mcg inhalat.powder (Trelegy Ellipta) 1 inh inhalation Q24H 10/28/24 [History Confirmed 05/18/25] pramipexole 0.5 mg tablet 0.5 mg PO BID restless leg #30 tabs 12/13/24 [Rx Confirmed 05/18/25] Held on 01/05/25. Instructions: Resume on 01/14/25. Please hold pramipexole until you see your primary care provider roflumilast 250 mcg tablet 250 mcg PO HS #30 tabs 01/17/25 [Rx Confirmed 05/18/25] albuterol sulfate 90 mcg/actuation aerosol inhaler 2 inh inhalation Q4H PRN copd #8.5 grams 02/01/25 [Rx Confirmed 05/18/25] ropinirole 1 mg tablet 1 mg PO QHS #90 tabs 05/11/25 [Rx Confirmed 05/18/25] clotrimazole 10 mg herbert 10 mg mucous membrane 5XD thrush #70 tabs 05/18/25 [Rx] escitalopram oxalate 10 mg tablet 20 mg (2 x 10 mg) PO QDAY anxiety #90 tabs 05/18/25 [Rx] ferrous fumarate 325 mg (106 mg iron) tablet 325 mg PO BID 1 month #60 tabs 05/18/25 [Rx] lorazepam 0.5 mg tablet 0.5 mg PO BID PRN anxiety #60 tabs 05/18/25 [Rx] MA Intake Visit Data Collection New Patient or Established: Established Patient (seen at [facility] within 3 years) Seen by Clinical Staff ONLY (RN/MA): No Pain Present Currently: No Pain scale:: 0 Pain Scale Used: Osullivan-Becker/Numerical Dyer And Washer Required: No PCP or OBGYN visit in last 3 months: Yes Hx Now: No Do You Feel Safe at Home: Yes Authorities Contacted: N/A Smoking Status Smoking Status: Former smoker Immunization / Flu Flu Vaccine in the Last 12 Months: No Flu Vaccine Exclusion Criteria: No Exclusion Criteria Past Medical History Past Medical History NEUROLOGIC: Negative Neurological Disorders or Seizures CARDIAC: Positive Heart Murmur; Negative Cardiac Disorders or Congestive Heart Failure RESPIRATORY: Positive Chronic Obstructive Pulmonary Disease (COPD), Asthma, Bronchitis, Cough, Sputum Production and Wheezing GASTROINTESTINAL: Positive Gastrointestinal Disorders, Gall Bladder Disease, Gastrointestinal Bleed and Gastroesophageal Reflux Disease; Negative Hepatitis GENITOURINARY: Positive Kidney Stones (FOR THIS PROC (HAD PROC 2009)); Negative Genitourinary Disorders or Renal Disease REPRODUCTIVE: Positive Breast Cancer and Previous Pregnancies MUSCULOSKELETAL: Positive Arthritis, Osteoporosis and Degenerative Joint Disease ENT: Positive Cataracts, Ear Infection and Deafness ENDOCRINE: Negative Endocrine Disorders, Diabetes Mellitus Type 1 or Diabetes Mellitus Type 2 HEMATOLOGIC: Positive Anemia (iron deffiency); Negative Blood Disorders or Sickle Cell Disease PSYCHO/SOCIAL: Positive Depression and Anxiety OTHER HISTORY: Positive Chemotherapy (2011), Radiation Therapy (January 2023), Cancer, Breast Cancer, Cervical Cancer and Lung Cancer; Negative Hospitalization, Down Syndrome, Developmental Delay, Shingles, Falls, Blood Transfusions, Blood Transfusion Reaction, Anesthesia Reactions, Organ Transplant, Hyperbaric Therapy, MRSA, VRSA, Vancomycin-Resistant Enterococci, Chicken Pox, Measles, Mumps or Clostridium Difficile Family History FAMILY HISTORY: Positive Family Respiratory Disorders (COPD), Family Cardiac Disorders, Family Gastrointestinal Problems (Trouble going to the bathroom. Trouble holding down food.), Family Cancer and Family Surgery; Negative Family Psychiatric Problems or Family Anesthesia Reaction Surgical History SURGICAL: Positive Lumpectomy and Hysterectomy; Negative Abdominal Surgery or Organ Transplant Social History SMOKING STATUS: Smoking status: Former smoker SECOND HAND EXPOSURE: second hand exposure: Yes ALCOHOL: Alcohol Intake: Never HOUSING: Housing: House LIVES WITH: Lives With: Alone Patient Portal Questionaires PHQ-9 PHQ-2 Over the last 2 weeks, how often have you been bothered by any of the following problems? 1. Little interest or pleasure in doing things: not at all 2. Feeling down, depressed, or hopeless: not at all Total score: 0 PHQ-9 8. Moving or speaking so slowly that other people could have noticed? - Or the opposite - being so fidgety or restless that you have been moving around a lot more than usual: not at all Source: Developed by Drs. Mati Black, uYe Jones, Rigo Oliveira and colleagues, with an educational aggie from [employer]. Social History Living Situation History Housing: House Housing Other:: Pt lives alone Tobacco History Smoking Status: Former smoker Second Hand Smoke Exposure: Yes Alcohol History Alcohol Intake: Never Domestic Abuse History Do You Feel Safe at Home: Yes Review of Systems Report any current symptoms Only answer those that you have currently: Past Medical History Past Medical History Have you ever been diagnosed with any of the following: Neurological Problems Seizures: No Cardiology Problems Heart Murmur: Yes Congestive Heart Failure: No Respiratory Problems Chronic Obstructive Pulmonary Disease (COPD): Yes Asthma: Yes Bronchitis: Yes Hx Cough: Yes Cough: Yes Wheezing: Yes Stomache/Intestinal Problems Hepatitis: No Gall Bladder Disease: Yes Gastrointestinal Bleed: Yes Gastroesophageal Reflux Disease: Yes Genital/Urinary Problems Renal Disease: No Kidney Stones: Yes (FOR THIS PROC (HAD PROC 2009)) Reproductive Problems Breast Cancer: Yes Previous Pregnancies: Yes Musculoskeletal Problems Arthritis: Yes Osteoporosis: Yes Degenerative Joint Disease: Yes Head,Eye,Nose,Throat Problems Cataracts: Yes Chronic Ear Infections: Yes Deafness: Yes Endocrine Problems Diabetes Mellitus Type 1: No Diabetes Mellitus Type 2: No Blood Problems Anemia: Yes (iron deffiency) Sickle Cell Disease: No Psychologic Problems Depression: Yes Anxiety: Yes Other Problems Hospitalization: No Down Syndrome: No Developmental Delay: No Shingles: No Falls: No Blood Transfusions: No Blood Transfusion Reaction: No Anesthesia Reactions: No Organ Transplant: No Chemotherapy: Yes (2011) Radiation Therapy: Yes (January 2023) Hyperbaric Therapy: No MRSA: No VRSA: No Vancomycin-Resistant Enterococci: No Chicken Pox: No Measles: No Mumps: No Clostridium Difficile: No Cancer: Yes Cervical Cancer: Yes Lung Cancer: Yes Surgical History Hysterectomy: Yes History of Present Illness HPI Narrative Ms. Hollingsworth is a 79-year-old female with past medical history of lung cancer status post completion of radiation in summer 2022, restless leg syndrome, bladder and rectal prolapse, history of multiple kidney stones and anxiety who is scheduled for follow up. Patient seen one week ago due to persistent RLS. Medication changes made. On follow up today, patient notes symptoms have not significantly improved. COntinues to present significant impairment to daily activities. Iron panel on recent labs showed significant iron deficiency. Increased iron, discussed taking extra ropinerole as needed to control symptoms. Will recheck iron panel and follow up in one month. Review of Systems Review of Systems Systems Reviewed: All systems reviewed, normal except as documented Objective/Exam Narrative Physical exam: Constitutional: AOx3, able to speak full sentences with no acute distress. Patient seen using portable O2 with 2L NC. HEENT: NC/AT, PERRLA, oral mucosa moist CVS: RRR, S1-S2 present, no murmurs RESP: Clear to auscultation bilaterally. No wheezing or crackles appreciated. Equal air movement throughout. 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 Sensation grossly intact. Assessment & Plan Diagnosis / Problem List (1) Restless leg syndrome: Status: Acute Assessment & Plan: Patient history of restless leg. Recent medication change, symptoms are difficult to control, with impairment of patient lifestyle. Frequently unable to leave house due to symptoms. Iron deficiency seen on recent labs. Plan: - Ropinirole 1 mg every night, may take extra pill once daily as needed - Ativan 0.5 mg as needed up to twice daily - Ferrous fumarate 325 mg BID - Repeat iron panel in 1 month - Follow up in one month. (2) Iron deficiency anemia: Status: Acute Qualifiers: Iron deficiency anemia type: unspecified iron deficiency Qualified Code(s): D50.9 - Iron deficiency anemia, unspecified Assessment & Plan: Labs 05/09/2025 showed Iron 34, TIBC 423, Iron saturation 8%. Plan: - Ferrous fumarate 325 mg BID - Repeat iron panel in 1 month - Follow up in one month. Additional Assessment Plan of care discussed with attending Dr. Escoto. Jack Robin MD PGY-2 Advanced Care Planning Advance care planning discussed with:: patient Office Procedures [facility] Level of Care Nursing/Assessment Patient Status: Established Patient Nursing Assessment/Reassessment: Medication Reconciliation, Update PMH in EMR and Vital Signs Coordination of Care: Complex Care and Chronic Disease 1-5, Complex Care/Chronic Disease 5 or more, Consent,records obtained, informed consent, Lab and Imaging orders, Results/Orders obtained and Staff clarify orders Established Patient Charge Established Patient Point Assignment: 125 Established Patient Point Charge: EP Level 4 (120-155)
== END 2025-05-18 15:26 | disposition home or self-care (01) ==
LOC: HODAHC 14:35
PROVIDERS: Supervising Provider Internal Medicine
DX: G25.81 Restless legs syndrome (principal); D50.9 Iron deficiency anemia, unspecified; Z85.118 Personal history of other malignant neoplasm of bronchus and lung; Z92.3 Personal history of irradiation; Z87.442 Personal history of urinary calculi; K62.3 Rectal prolapse; N81.10 Cystocele, unspecified; F41.9 Anxiety disorder, unspecified
CPT/HCPCS: 99214; G0463

== ENCOUNTER → 2025-06-22 | Outpatient (CLI) | payer MEDICARE, SELFPAY ==
[2025-06-22 09:47] LABS: Basophils # (Auto) 0.1 Thou/mm3 (0.0-0.2); Basophils % (Auto) 1 % (0-2.5); Eosinophils # (Auto) 0.2 Thou/mm3 (0.0-0.5); Eosinophils % (Auto) 4 % (0-10); Hematocrit 37.7 % (36.0-46.0); Hemoglobin 11.6 g/dL (12.0-16.0); Immature Granulocytes Auto 0.04 Thou/mm3 (0.00-0.00); Lymphocytes # (Auto) 1.0 Thou/mm3 (1.0-4.8); Lymphocytes % (Auto) 20 % (10-50); Mean Corpuscular HGB Conc 30.8 g/dl (31.0-37.0); Mean Corpuscular Hemoglobin 27.8 pg (25.0-35.0); Mean Corpuscular Volume 90 fL (80-100); Monocytes # (Auto) 0.5 Thou/mm3 (0.0-0.8); Monocytes % (Auto) 9 % (0-12); Neutrophils # (Auto) 3.5 Thou/mm3 (1.8-7.7); Neutrophils % (Auto) 66 % (37-80); Nucleated Red Blood Cell # 0.00 Thou/mm3 (0.00-0.00); Nucleated Red Blood Cell % 0 /100 WBC (0); Platelet Count 243 Thou/mm3 (140-440); RDW Standard Deviation 55.5 fL (36.4-46.3); Red Blood Count 4.18 Miln/mm3 (4.00-5.20); White Blood Count 5.3 Thou/mm3 (3.6-11.0)
[2025-06-22 10:06] LABS: Iron 34 mcg/dL (50-170); Percent Iron Saturation 10 % (20-55); Total Iron Binding Capacity 318 mcg/dL (250-425); Unsaturated Iron Binding 284 (225-295)
== END | disposition home or self-care (01) ==
PROVIDERS: Referring Provider Internal Medicine; Visit Provider Internal Medicine
DX: D50.9 Iron deficiency anemia, unspecified (principal)
CPT/HCPCS: 36415; 83540; 83550; 85025

== ENCOUNTER 2025-06-24 14:17 | Outpatient (AMB) | payer MEDICARE, SELFPAY ==
[2025-06-24 14:26] VITALS: BP 140/86; PULSE 88; RESP 18; TEMP 36.2; O2SAT 92; BMI 26.1
--- NOTE | 2025-06-24 14:26 | ACNOTE_ITS ---
Vital Signs 06/24/25 14:26 Height 1.52 m Height Method Stated Weight 60.328 kg Weight Measurement Method Standing Scale BMI 26.1 BP 140/86 H Blood Pressure Source Automatic Cuff Blood Pressure Location Right Upper Arm Position Sitting Respiration 18 Pulse 88 Pulse Source Monitor Temp 97.1 F Temp Source Temporal Artery Scan Pulse Oximetry (%) 92 L Oxygen Delivery Method Room Air Allergies/Meds Allergies & Medications Allergies nirmatrelvir (From Paxlovid) Allergy (Severe, Verified 06/24/25 14:27) Abdominal Pain ritonavir (From Paxlovid) Allergy (Severe, Verified 06/24/25 14:27) Abdominal Pain cefaclor Allergy (Verified 06/24/25 14:27) Redness of Skin prednisone Adverse Reaction (Intermediate, Verified 06/24/25 14:27) AGITATED Medication Reconciliation sennosides 8.6 mg tablet (Senna Laxative) 8.6 mg PO QDAY #2 tabs 05/28/23 [Rx Confirmed 06/24/25] fluticasone fur. 100 mcg-umeclid 62.5 mcg-vilant 25 mcg inhalat.powder (Trelegy Ellipta) 1 inh inhalation QDAY 1 month #60 ea 09/06/24 [Rx Confirmed 06/24/25] albuterol sulfate 90 mcg/actuation aerosol inhaler 2 inh inhalation Q4HR PRN Shortness Of Breath 1 month #8.5 grams 10/22/24 [Rx Confirmed 06/24/25] fluticasone fur. 200 mcg-umeclid 62.5 mcg-vilant 25 mcg inhalat.powder (Trelegy Ellipta) 1 inh inhalation Q24H 10/28/24 [History Confirmed 06/24/25] pramipexole 0.5 mg tablet 0.5 mg PO BID restless leg #30 tabs 12/13/24 [Rx Confirmed 06/24/25] Held on 01/05/25. Instructions: Resume on 01/14/25. Please hold pramipexole until you see your primary care provider roflumilast 250 mcg tablet 250 mcg PO HS #30 tabs 01/17/25 [Rx Confirmed 06/24/25] albuterol sulfate 90 mcg/actuation aerosol inhaler 2 inh inhalation Q4H PRN copd #8.5 grams 02/01/25 [Rx Confirmed 06/24/25] ropinirole 1 mg tablet 1 mg PO QHS #90 tabs 05/11/25 [Rx Confirmed 06/24/25] clotrimazole 10 mg herbert 10 mg mucous membrane 5XD thrush #70 tabs 05/18/25 [Rx Confirmed 06/24/25] escitalopram oxalate 10 mg tablet 20 mg (2 x 10 mg) PO QDAY anxiety #90 tabs 05/18/25 [Rx Confirmed 06/24/25] ferrous fumarate 325 mg (106 mg iron) tablet 325 mg PO BID 1 month #60 tabs 05/18/25 [Rx Confirmed 06/24/25] azithromycin 500 mg tablet 500 mg PO QMWF 1 month #13 tabs 06/24/25 [Rx] lorazepam 0.5 mg tablet 0.5 mg PO BID PRN anxiety #60 tabs 06/24/25 [Rx] MA Intake Visit Data Collection New Patient or Established: Established Patient (seen at [facility] within 3 years) Seen by Clinical Staff ONLY (RN/MA): No Pain Present Currently: No Pain scale:: 0 Pain Scale Used: Osullivan-Becker/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: No PCP or OBGYN visit in last 3 months: Yes Hx Now: No Do You Feel Safe at Home: Yes Authorities Contacted: N/A Smoking Status Smoking Status: Former smoker Immunization / Flu Flu Vaccine in the Last 12 Months: No Flu Vaccine Exclusion Criteria: No Exclusion Criteria Past Medical History Past Medical History NEUROLOGIC: Negative Neurological Disorders or Seizures CARDIAC: Positive Heart Murmur; Negative Cardiac Disorders or Congestive Heart Failure RESPIRATORY: Positive Chronic Obstructive Pulmonary Disease (COPD), Asthma, Bronchitis, Cough, Sputum Production and Wheezing GASTROINTESTINAL: Positive Gastrointestinal Disorders, Gall Bladder Disease, Gastrointestinal Bleed and Gastroesophageal Reflux Disease; Negative Hepatitis GENITOURINARY: Positive Kidney Stones (FOR THIS PROC (HAD PROC 2009)); Negative Genitourinary Disorders or Renal Disease REPRODUCTIVE: Positive Breast Cancer and Previous Pregnancies MUSCULOSKELETAL: Positive Arthritis, Osteoporosis and Degenerative Joint Disease ENT: Positive Cataracts, Ear Infection and Deafness ENDOCRINE: Negative Endocrine Disorders, Diabetes Mellitus Type 1 or Diabetes Mellitus Type 2 HEMATOLOGIC: Positive Anemia (iron deffiency); Negative Blood Disorders or Sickle Cell Disease PSYCHO/SOCIAL: Positive Depression and Anxiety OTHER HISTORY: Positive Chemotherapy (2011), Radiation Therapy (January 2023), Cancer, Breast Cancer, Cervical Cancer and Lung Cancer; Negative Hospitalization, Down Syndrome, Developmental Delay, Shingles, Falls, Blood Transfusions, Blood Transfusion Reaction, Anesthesia Reactions, Organ Transplant, Hyperbaric Therapy, MRSA, VRSA, Vancomycin-Resistant Enterococci, Chicken Pox, Measles, Mumps or Clostridium Difficile Family History FAMILY HISTORY: Positive Family Respiratory Disorders (COPD), Family Cardiac Disorders, Family Gastrointestinal Problems (Trouble going to the bathroom. Trouble holding down food.), Family Cancer and Family Surgery; Negative Family Psychiatric Problems or Family Anesthesia Reaction Surgical History SURGICAL: Positive Lumpectomy and Hysterectomy; Negative Abdominal Surgery or Organ Transplant Social History SMOKING STATUS: Smoking status: Former smoker SECOND HAND EXPOSURE: second hand exposure: Yes ALCOHOL: Alcohol Intake: Never HOUSING: Housing: House LIVES WITH: Lives With: Alone Patient Portal Questionaires PHQ-9 PHQ-2 Over the last 2 weeks, how often have you been bothered by any of the following problems? 1. Little interest or pleasure in doing things: not at all 2. Feeling down, depressed, or hopeless: not at all Total score: 0 PHQ-9 8. Moving or speaking so slowly that other people could have noticed? - Or the opposite - being so fidgety or restless that you have been moving around a lot more than usual: not at all Source: Developed by Drs. Mati Black, Yue Jones, Rigo Oliveira and colleagues, with an educational aggie from [employer]. Social History Living Situation History Housing: House Housing Other:: Pt lives alone Tobacco History Smoking Status: Former smoker Second Hand Smoke Exposure: Yes Alcohol History Alcohol Intake: Never Domestic Abuse History Do You Feel Safe at Home: Yes Review of Systems Report any current symptoms Only answer those that you have currently: Past Medical History Past Medical History Have you ever been diagnosed with any of the following: Neurological Problems Seizures: No Cardiology Problems Heart Murmur: Yes Congestive Heart Failure: No Respiratory Problems Chronic Obstructive Pulmonary Disease (COPD): Yes Asthma: Yes Bronchitis: Yes Hx Cough: Yes Cough: Yes Wheezing: Yes Stomache/Intestinal Problems Hepatitis: No Gall Bladder Disease: Yes Gastrointestinal Bleed: Yes Gastroesophageal Reflux Disease: Yes Genital/Urinary Problems Renal Disease: No Kidney Stones: Yes (FOR THIS PROC (HAD PROC 2009)) Reproductive Problems Breast Cancer: Yes Previous Pregnancies: Yes Musculoskeletal Problems Arthritis: Yes Osteoporosis: Yes Degenerative Joint Disease: Yes Head,Eye,Nose,Throat Problems Cataracts: Yes Chronic Ear Infections: Yes Deafness: Yes Endocrine Problems Diabetes Mellitus Type 1: No Diabetes Mellitus Type 2: No Blood Problems Anemia: Yes (iron deffiency) Sickle Cell Disease: No Psychologic Problems Depression: Yes Anxiety: Yes Other Problems Hospitalization: No Down Syndrome: No Developmental Delay: No Shingles: No Falls: No Blood Transfusions: No Blood Transfusion Reaction: No Anesthesia Reactions: No Organ Transplant: No Chemotherapy: Yes (2011) Radiation Therapy: Yes (January 2023) Hyperbaric Therapy: No MRSA: No VRSA: No Vancomycin-Resistant Enterococci: No Chicken Pox: No Measles: No Mumps: No Clostridium Difficile: No Cancer: Yes Cervical Cancer: Yes Lung Cancer: Yes Surgical History Hysterectomy: Yes History of Present Illness HPI Narrative Ms. Hollingsworth is a 79-year-old female with past medical history of lung cancer status post completion of radiation in summer 2022, restless leg syndrome, bladder and rectal prolapse, history of multiple kidney stones and anxiety who is scheduled for follow up. 05/18/25: Patient seen one week ago due to persistent RLS. Medication changes made. On follow up today, patient notes symptoms have not significantly improved. Continues to present significant impairment to daily activities. Iron panel on recent labs showed significant iron deficiency. Increased iron, discussed taking extra ropinerole as needed to control symptoms. Will recheck iron panel and follow up in one month. 06/24/25: Patient presents for followup for restless leg syndrome. Occurs at least once daily, resolves quickly after taking pill. Reviewed labs, Iron and hemolglobin low but stable. Encouraged patient to take second ropinerol as needed. Will recheck CBC and iron panel in 1 month. Review of Systems Review of Systems Systems Reviewed: All systems reviewed, normal except as documented Objective/Exam Narrative Physical exam: Constitutional: AOx3, able to speak full sentences with no acute distress. Patient seen using portable O2 with 2L NC. HEENT: NC/AT, PERRLA, oral mucosa moist CVS: RRR, S1-S2 present, no murmurs RESP: Clear to auscultation bilaterally. No wheezing or crackles appreciated. Equal air movement throughout. 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 Sensation grossly intact. Assessment & Plan Diagnosis / Problem List (1) Restless leg syndrome: Status: Acute Assessment & Plan: Patient history of restless leg. Recent medication change, symptoms are difficult to control, with impairment of patient lifestyle. Frequently unable to leave house due to symptoms. Iron deficiency seen on recent labs. Plan: - Ropinirole 1 mg every night, may take extra pill once daily as needed - Ativan 0.5 mg as needed up to twice daily - Ferrous fumarate 325 mg BID - Repeat iron panel in 1 month - Follow up in one month. (2) Iron deficiency anemia: Status: Acute Qualifiers: Iron deficiency anemia type: unspecified iron deficiency Qualified Code(s): D50.9 - Iron deficiency anemia, unspecified Assessment & Plan: Labs 05/09/2025 showed Iron 34, TIBC 423, Iron saturation 8%. Labs 06/24/2025 showed Iron 34, TIBC 318, Iron saturation 10% Plan: - Ferrous fumarate 325 mg BID - Repeat iron panel in 1 month - Follow up in one month. (3) COPD (chronic obstructive pulmonary disease): Status: Chronic Qualifiers: COPD type: unspecified COPD Qualified Code(s): J44.9 - Chronic obstructive pulmonary disease, unspecified Assessment & Plan: Pt continues to use NC at all times. Pt uses her albuterol inhaler and Trelegy inhaler daily. Plan: -Continue to use O2 and wean as tolerated, with O2 sat goal between 88-92% -Pt to use inhalers as needed. -Pt encouraged to take deep breaths and to rinse after each use. -Continue with Roflumilast and azithromycin 3 times weekly (4) Anxiety: Status: Acute Assessment & Plan: Pt states her anxiety has gotten slightly worse from her current stress levels with her difficult to treat RLS Plan: Increased her Lexapro to 20mg HS and can use 0.5mg Ativan as needed Encouraged to use only as needed to avoid body dependence from medication Orders: Orders Iron Panel Today D50.9 - Iron deficiency anemia, unspecified CBC Auto Diff Post-Transfusion 1 Month D50.9 - Iron deficiency anemia, unspecified Iron Panel Today D50.9 - Iron deficiency anemia, unspecified Additional Assessment Plan of care discussed with attending Dr. Escoto. Jack Robin MD PGY-2 Advanced Care Planning Advance care planning discussed with:: patient Office Procedures [facility] Level of Care Nursing/Assessment Patient Status: Established Patient Nursing Assessment/Reassessment: Medication Reconciliation, Update PMH in EMR and Vital Signs Coordination of Care: Complex Care and Chronic Disease 1-5, Education Complex Pt/Fam, Consent,records obtained, informed consent, Lab and Imaging orders, Results/Orders obtained and Staff clarify orders Established Patient Charge Established Patient Point Assignment: 110 Established Patient Point Charge: EP Level 3 (80-115)
== END 2025-06-24 14:49 | disposition home or self-care (01) ==
LOC: HODAHC 14:17
PROVIDERS: Supervising Provider Internal Medicine
DX: G25.81 Restless legs syndrome (principal); D50.9 Iron deficiency anemia, unspecified; J44.9 Chronic obstructive pulmonary disease, unspecified; F41.9 Anxiety disorder, unspecified
CPT/HCPCS: 99213; G0463